=== PATIENT | female | born 1985 | race Caucasian/White ===

== ENCOUNTER 2020-10-23 14:56 | Emergency (ER) | payer OTHER, SELFPAY ==
[2020-10-23 15:08] VITALS: BP 138/91; PULSE 117; RESP 20; TEMP 36.8; O2SAT 98
--- NOTE | 2020-10-23 15:15 | ED.SKABFB ---
HPI - Skin/Abscess/Foreign Bdy General Chief complaint: Skin/Abscess/Foreign Body Stated complaint: cyst on back Source: patient Mode of arrival: ambulatory Limitations: no limitations History of Present Illness HPI narrative: Patient is a 35-year-old female who presents reporting abscess to right upper back. Patient reports a history of abscesses as well as sebaceous cysts. Patient reports abscess x6 to 7 days with increased redness and tenderness x3 days. She denies other complaints at this time. She reports using warm compresses and taking Tylenol without relief. She reports she is in town for the [place] and unable to see PCP. Related Data Home Medications Medication Instructions Recorded Confirmed chlorpromazine 10/23/20 clonazepam 10/23/20 flurandrenolide TOPICAL 10/23/20 Allergies Allergy/AdvReac Type Severity Reaction Status Date / Time codeine Allergy Mild Unverified 10/20/16 12:05 RED #40 Allergy Mild Uncoded 11/11/08 16:36 Review of Systems Review of Systems: Narrative: CONSTITUTIONAL: Denies fever, chills, or sweats. EYES: Denies visual changes, redness, or discharge. ENT: Denies rhinorrhea, congestion, sore throat, or otalgia. CARDIOVASCULAR: Denies chest pain, palpitations, or edema. RESPIRATORY: Denies cough or dyspnea. GASTROINTESTINAL: Denies abdominal pain, nausea, vomiting, or diarrhea. GENITOURINARY: Denies dysuria or hematuria. SKIN: Abscess to right upper back MUSCULOSKELETAL: Denies back pain, joint pain, or myalgia. NEUROLOGIC: Denies headache, numbness, dizziness, or weakness. PSYCHIATRIC: Denies anxiety or depression. [facility] Past Medical History Medical History Anxiety Depression Endometriosis Pilonidal cyst Surgical History Surgical History History of appendectomy History of bowel resection History of hysterectomy Hx of cholecystectomy Family History Family History Other No significant family history Social History Social History Smoking status: Never smoker Alcohol intake: current Alcohol use details: socially Substance use: never Living arrangements: with family Exam Narrative: Exam Narrative: GENERAL: Well-appearing, well-nourished, and in no acute distress. HEAD: Normocephalic, atraumatic. EYES: EOMI. No redness or drainage. Conjunctiva are normal. ENT: Mucous membranes pink and moist. CHEST: No respiratory distress. HEART: Regular rate and rhythm. EXTREMITIES: Normal range of motion. SKIN: Approximately 1.5 cm area of erythema to right upper back, induration and centralized fluctuance. NEURO: No focal deficits. Alert and oriented x3. Gait steady. PSYCH: Normal affect. No signs of depression or anxiety. Course Vital Signs Vital signs: Vital Signs Temperature 36.8 C 10/23/20 15:08 Pulse Rate 117 H 10/23/20 15:08 Respiratory Rate 10/23/20 15:08 Blood Pressure 138/91 H 10/23/20 15:08 Pulse Oximetry 98 10/23/20 15:08 Temperature 36.8 C 10/23/20 15:08 Pulse Rate 117 H 10/23/20 15:08 Respiratory Rate 10/23/20 15:08 Blood Pressure 138/91 H 10/23/20 15:08 Pulse Oximetry 98 10/23/20 15:08 Reviewed. Patient has been instructed to follow-up with her PCP regarding her blood pressure. Procedures Abscess I/D back: Date of Incision: 10/23/20 Time of Incision: 15:30 Side (if applicable): right Sedation/analgesia: none Local Anesthetic: lidocaine 1% Amount of anesthesia used (mL): 2 Technique: incised with #11 blade Packing used?: none I&D Results: Pus and Blood MDM - Skin/Abscess/Foreign Bdy MDM Narrative Medical decision making narrative: Incision and drainage completed to patient's right back, moderate amount of pus note
== END 2020-10-23 15:52 | disposition home or self-care (01) ==
PROVIDERS: Emergency Provider Nurse Practitioner
DX: L02.212 Cutaneous abscess of back [any part, except buttock and flank] (principal); L03.312 Cellulitis of back [any part except buttock and flank]
CPT/HCPCS: 10060; 87070; 87075; 87205; 87804; 87880; 99213; G0463

== ENCOUNTER 2020-10-27 11:04 | Emergency (ER) | payer OTHER, SELFPAY ==
[2020-10-27 11:10] VITALS: BP 129/75; PULSE 99; RESP 16; TEMP 36.2; O2SAT 98
--- NOTE | 2020-10-27 11:16 | ED.SKABFB ---
HPI - Skin/Abscess/Foreign Bdy General Chief complaint: Skin/Abscess/Foreign Body Stated complaint: possible cyst on back Source: patient Mode of arrival: ambulatory Limitations: no limitations History of Present Illness HPI narrative: Patient is a 35-year-old female who resents with abscess to right back. Abscess was drained 4 days ago and she reports it is filling up . She reports using drainage and tenderness. Patient was also started on clindamycin at that time. She denies all other complaints. MD complaint: abscess/boil Related Data Home Medications Medication Instructions Recorded Confirmed chlorpromazine 10/23/20 clonazepam 10/23/20 flurandrenolide TOPICAL 10/23/20 Allergies Allergy/AdvReac Type Severity Reaction Status Date / Time codeine Allergy Mild Unverified 10/20/16 12:05 RED #40 Allergy Mild Uncoded 11/11/08 16:36 Review of Systems Review of Systems: Narrative: CONSTITUTIONAL: Denies fever, chills, or sweats. EYES: Denies visual changes, redness, or discharge. ENT: Denies rhinorrhea, congestion, sore throat, or otalgia. CARDIOVASCULAR: Denies chest pain, palpitations, or edema. RESPIRATORY: Denies cough or dyspnea. GASTROINTESTINAL: Denies abdominal pain, nausea, vomiting, or diarrhea. GENITOURINARY: Denies dysuria or hematuria. SKIN: Abscess to right back MUSCULOSKELETAL: Denies back pain, joint pain, or myalgia. NEUROLOGIC: Denies headache, numbness, dizziness, or weakness. PSYCHIATRIC: Denies anxiety or depression. PMFSH Past Medical History Medical History Anxiety Depression Endometriosis Pilonidal cyst Surgical History Surgical History History of appendectomy History of bowel resection History of hysterectomy Hx of cholecystectomy Family History Family History Other No significant family history Social History Social History Smoking status: Never smoker Alcohol intake: current Substance use: never Exam Narrative: Exam Narrative: GENERAL: Well-appearing, well-nourished, and in no acute distress. HEAD: Normocephalic, atraumatic. EYES: EOMI. No redness or drainage. Conjunctiva are normal. ENT: Mucous membranes pink and moist. CHEST: No respiratory distress. EXTREMITIES: Normal range of motion. SKIN: Small abscess to right back, original incision closed at this time, tenderness with palpation, no induration, fluctuation or erythema present as it was 4 days prior. NEURO: No focal deficits. Alert and oriented x3. Gait steady. PSYCH: Normal affect. No signs of depression or anxiety. Course Vital Signs Vital signs: Vital Signs Temperature 36.2 C L 10/27/20 11:10 Pulse Rate 99 10/27/20 11:10 Respiratory Rate 16 10/27/20 11:10 Blood Pressure 129/75 10/27/20 11:10 Pulse Oximetry 98 10/27/20 11:10 Temperature 36.2 C L 10/27/20 11:10 Pulse Rate 99 10/27/20 11:10 Respiratory Rate 16 10/27/20 11:10 Blood Pressure 129/75 10/27/20 11:10 Pulse Oximetry 98 10/27/20 11:10 Reviewed. Patient has been instructed to follow-up with her PCP regarding her blood pressure. Procedures Abscess I/D back: Date of Incision: 10/27/20 Time of Incision: 11:20 Side (if applicable): right Sedation/analgesia: none Local Anesthetic: lidocaine 1% Amount of anesthesia used (mL): 2 Technique: incised with #11 blade Amount of fluid expressed (mL): 1 Irrigation: Yes Packing used?: plain I&D Results: Pus and Blood MDM - Skin/Abscess/Foreign Bdy MDM Narrative Medical decision making narrative: Patient's abscess is healing well. Patient requesting abscess being reopened as she has noted drainage and continues to report pain. Small amount of erythema noted. Discus
== END 2020-10-27 11:39 | disposition home or self-care (01) ==
PROVIDERS: Emergency Provider Nurse Practitioner
DX: L02.212 Cutaneous abscess of back [any part, except buttock and flank] (principal); N80.9 Endometriosis, unspecified; F41.9 Anxiety disorder, unspecified
CPT/HCPCS: 10061; 99212; G0463

== ENCOUNTER 2021-10-12 13:23 | Emergency (ER) | payer OTHER, SELFPAY ==
[2021-10-12] VITALS (18 sets, daily range): BP systolic 100–118; BP diastolic 53–87; PULSE 59–80; RESP 10–20; TEMP 36.8–36.9; O2SAT 92–100
--- NOTE | ~2021-10-12 | CT_ITS ---
EXAMINATION: CT abdomen pelvis w con DATE: 10/12/2021 15:22 INDICATION: Periumbilical abdominal pain TECHNIQUE: Computed tomography (CT) of the abdomen and pelvis was performed with 100 cc Omnipaque 350 intravenous contrast. The dose-length product was 864.17 mGy-cm. Automated exposure control and iter ative reconstruction technique were employed. COMPARISON: None. FINDINGS: Lung bases are unremarkable. Heart size is normal. No significant pleural or pericardial ef fusion. Status post cholecystectomy with expected prominence of the bile ducts. The spleen, pancreas, adrenal glands are unremarkable. There is a 3 mm nonobstructing left renal stone. There are subtle h ypodense lesions of the kidneys, most likely benign cysts. Nonobstructive bowel gas pattern. There are is a surgical anastomosis in the right lower abdomen and rectum. No significant vascular abnormality. No lymphadenopathy. No acute osseous abnormality. IMPRESSION: 1. No acute abdominal abnormality. 2: Nonobstructing 3 mm left renal stone. Reviewed, dictated and finalized at location A. TRANSITIONAL
--- NOTE | ~2021-10-12 | XR_ITS ---
EXAMINATION: XR chest 2V DATE: 10/12/2021 14:15 INDICATION: Low-grade fever. Abdominal pain. TECHNIQUE: Frontal and lateral views of the chest were obtained. COMPARISON: None. FINDINGS: The chest demonstrates clear lungs without pneumonia, pleural effusion, or pneumothorax. Th e heart size is normal. Surgical clips in the right upper quadrant are likely from cholecystectomy. IMPRESSION: 1. No acute cardiopulmonary disease. Reviewed, dictated and finalized at location A. ITY COMPLIANCE COORDINATOR
[2021-10-12] MEDS: SODIUM CHLORIDE 0.9% IV 1,000 ML 999 ML IV CONT (14:09)
[2021-10-12] MEDS: ONDANSETRON INJ 4 MG/2 ML VIAL IV PUSH (14:10)
--- NOTE | 2021-10-12 14:12 | PC.NURSE ---
Pt off floor to radiology
--- NOTE | 2021-10-12 14:31 | ED.GENADULT ---
HPI - General Adult General Chief complaint: Abdominal Pain Stated complaint: ABD PAIN/FEVER Time Seen by Provider: 10/12/21 13:38 Source: patient and RN notes reviewed Mode of arrival: EMS Limitations: no limitations History of Present Illness HPI narrative: This is a 36 year old female with history of endometriosis, SBO, chronic abdominal pain who presents for evaluation of low grade fever. She reports history of abdominal and this abdominal today is similar to her usual pain. She is here due to concern for low grade fever. Her fever started last night. She reports temperature of 99-100 F last night and she had fever 100.4 F at home today. Her abdominal pain is located just right of her umbilicus. She had small bowel movement this morning but states she has not had BM in 3 days. She has nausea but no vomiting. She denies sore throat, cough, shortness of breath or urinary symptoms. Related Data Home Medications Medication Instructions Recorded Confirmed chlorpromazine 10/23/20 clonazepam 10/23/20 flurandrenolide TOPICAL 10/23/20 Allergies Allergy/AdvReac Type Severity Reaction Status Date / Time codeine Allergy Mild Unknown Verified 10/12/21 13:36 RED #40 Allergy Mild Hyperactive Uncoded 10/12/21 13:36 Review of Systems Review of Systems: All systems reviewed & are unremarkable except as noted in HPI and below PMFSH Past Medical History Medical History Anxiety Depression Endometriosis Pilonidal cyst Surgical History Surgical History History of appendectomy History of bowel resection History of hysterectomy Hx of cholecystectomy Family History Family History Other No significant family history Social History Social History Smoking status: Never smoker Alcohol intake: current Alcohol use details: socially Substance use: never Exam Const: General: no acute distress and alert Orientation/consciousness: patient oriented x3 Eyes: EOM: EOMs intact bilaterally Chest: Chest palpation & inspection: normal inspection of the chest Resp: Effort & Inspection: normal respiratory effort and no retractions Auscultation: clear to auscultation bilaterally Cardio: Rate: regular rate Rhythm: regular rhythm Heart sounds: no murmurs GI: GI Palp: Yes Soft to palpation, Yes Tenderness to palpation present (GI) (Diffuse), No Guarding due to palpation present (GI) and No Rigid due to palpation Auscultation: normal bowel sounds : General: Yes no CVA tenderness Skin: General skin exam: normal color Rashes: no rashes Neuro: General: patient oriented x3, moves all extremities and CN's II-XI intact bilaterally Psych: Mental Status: mental status grossly normal Affect: normal affect Course Reevaluation(s) Reevaluation #1: I Discussed with patient labs and CT unremarkable. She understands she will be discharged home and she is still under investigation for covid. She does not appear to be in any distress. Date: 10/12/21 Time: 16:31 Vital Signs Vital signs: Vital Signs Temperature 98.5 F 10/12/21 13:27 Pulse Rate 79 10/12/21 13:27 Respiratory Rate 12 10/12/21 13:27 Blood Pressure 108/87 10/12/21 13:27 Pulse Oximetry 96 10/12/21 13:27 Temperature 98.2 F 10/12/21 17:13 Pulse Rate 59 L 10/12/21 17:13 Respiratory Rate 18 10/12/21 17:13 Blood Pressure 116/82 10/12/21 17:13 Pulse Oximetry 100 10/12/21 17:13 Medical Decision Making Vital Signs Vital Signs: Vital Signs Temperature 98.5 F 10/12/21 13:27 Pulse Rate 79 10/12/21 13:27 Respiratory Rate 12 10/12/21 13:27 Blood Pressure 108/87 10/12/21 13:27 Pulse Oximetry 96 10/12/21 13:27 Temperature 98.2 F 10/12/21 17:13 Pulse Rate 59 L 10/12/21
[2021-10-12 14:41] LABS: Basophils Percent Auto 0.2 % (0.2-1.2); Eosinophils Percent Auto 0.1 % (0-4.4); Hematocrit 38.9 % (37.0-47.0); Hemoglobin 13.3 g/dL (12.0-15.0); Immature Granulocyte Absolute 0.11 K/mm3 (0.00-0.031); Immature Granulocyte Percent A 1.3 % (0-0.5); Lymphocytes Absolute Auto 1.84 K/mm3 (0.9-3.2); Lymphocytes Percent Auto 22.2 % (18.3-44.2); Mean Corpuscular HGB Conc 34.2 g/dl (32-36); Mean Corpuscular Volume 87.8 fl (80-100); Mean Platelet Volume 9.8 fl (7.4-10.4); Monocytes Absolute Auto 0.3 K/mm3 (0.1-0.6); Monocytes Percent Auto 3.1 % (2.6-8.5); Neutrophils Absolute Auto 6.1 K/mm3 (1.3-6.7); Neutrophils Percent Auto 73.1 % (45.5-73.1); Platelet Count Result 189 k/mm3 (150-375); Red Blood Count 4.43 M/mm3 (4.2-5.4); Red Cell Distribution Width 12.8 % (11.5-14.5); White Blood Count 8.3 K/mm3 (4.5-10.0)
[2021-10-12 14:50] LABS: Add Urine Microscopic? YES; Amorphous Sediment Urine Moderate; Appearance Urine Cloudy (Clear); Bilirubin Urine Negative (Negative); Blood Urine Negative (Negative); Color Urine Yellow (Yellow); Glucose Urine UA Negative (Negative); Ketones Urine Negative (Negative); Leukocyte Esterase Ur Negative LEU/UL (Negative); Mucus Urine Rare /lpf; Nitrate Urine Negative (Negative); Protein Urine Negative (Negative); RBC Urine 0-2 /hpf (0-2); Specific Grav Ur 1.013 (1.001-1.035); Squamous Epithelial Cell Urine Occasional /hpf (Few); Urobilinogen Urine Negative mg/dL (<2.0); WBC Urine 0-3 /hpf
[2021-10-12 14:53] LABS: Alanine Aminotransferase 23 U/L (4-35); Albumin Level 4.3 g/dL (3.5-5.1); Alkaline Phosphatase 56 U/L (38-126); Anion Gap 3 mmol/L (8-16); Aspartate Amino Transferase 21 U/L (14-36); Bilirubin,Total 0.3 mg/dL (0.2-1.3); Blood Urea Nitrogen 19 mg/dL (7-17); Calcium 9.3 mg/dL (8.4-10.2); Carbon Dioxide 24 mmol/L (22-30); Chloride 109 mmol/L (98-107); Estimated CRCL calculation 101 ml/min; Estimated Glomerular Filt Rate > 60; Glucose 118 mg/dL (65-110); Lipase 35 U/L (23-300); Potassium 4.6 mmol/L (3.4-5.0); Sodium 136 mmol/L (137-145)
[2021-10-12 14:54] LABS: Lactic Acid Reflex 0.8 mmol/L (0.7-2.1)
[2021-10-12] MEDS: KETOROLAC 30 MG/ML VIAL (*BKC) IV PUSH (15:33)
[2021-10-12] MEDS: DICYCLOMINE HCL INJ 20 MG/2 ML VIAL IM (16:28)
[2021-10-16 19:23] LABS: SARS-CoV-2 RNA PCR Negative
== END 2021-10-12 17:30 | disposition home or self-care (01) ==
PROVIDERS: Emergency Provider General Practice
DX: N20.0 Calculus of kidney (principal); Z20.822 Contact with and (suspected) exposure to COVID-19
CPT/HCPCS: 36415; 71046; 74177; 80053; 81001; 83605; 83690; 85025; 87804; 96361; 96372; 96374; 96375; 99284; C9803; J0131; J0500; J1885; J2405; J7030; Q9967; U0003; U0005

== ENCOUNTER 2022-01-13 15:30 | Emergency (ER) | payer OTHER, SELFPAY ==
--- NOTE | 2022-01-13 15:37 | ED.SKABFB ---
HPI - Skin/Abscess/Foreign Bdy General Chief complaint: Skin/Abscess/Foreign Body Stated complaint: Swollen cyst Time Seen by Provider: 01/13/22 15:37 Source: patient Mode of arrival: ambulatory Limitations: no limitations History of Present Illness HPI narrative: Ms. Bowie is a 36-year-old female patient presenting to the clinic today with complaints of possible infected cyst to the posterior right thigh. She does have a history of pilonidal cyst in the past that was surgically removed. Is concerned that this cyst may become more infected and become more painful. She is adamant about having this removed today due to her insurance lapsing due to new employment. Reports that it has become more painful today but it has been present for approximately 1 year. Related Data Home Medications Medication Instructions Recorded Confirmed clonazepam 10/23/20 Cymbalta 01/13/22 Allergies Allergy/AdvReac Type Severity Reaction Status Date / Time codeine Allergy Mild Unknown Verified 10/12/21 13:36 RED #40 Allergy Mild Hyperactive Uncoded 10/12/21 13:36 Review of Systems Review of Systems: Pertinent positives per HPI. Patient denies any fever, chills, rash, headache, visual changes, dizziness, cough, runny nose, sore throat, shortness of breath, chest pain, palpitations, nausea, vomiting, diarrhea, constipation, abdominal pain, or any urinary issues. PMFSH Past Medical History Medical History Anxiety Depression Endometriosis Pilonidal cyst Surgical History Surgical History History of appendectomy History of bowel resection History of hysterectomy Hx of cholecystectomy Family History Family History Other No significant family history Social History Social History Smoking status: Never smoker Alcohol intake: current Alcohol use details: socially Substance use: never Comments At the time of my signature, I reviewed and agree with the nursing past medical, surgical, social, and family history. There is no relevant family history pertinent to the patient complaint. Exam Narrative: General: Well-developed, well nourished, in no apparent distress Cardio: Regular rate and rhythm, s1 and s2 normal, no murmur appreciated. Resp: Clear to auscultation bilaterally, no rhonchi, rales, wheezing or rubs. Integumentary: [place], warm, and dry, intact without lesion, no rashes. Quarter sized cyst to the right posterior thigh just under subcutaneous tissue, no redness or swelling, tender to palpation with mild fluctuance. Has a very small blackhead in the center of the cyst. Course Course Emergency Course: Portions of this record may have been created with voice recognition software. Level of Care: Express Care Visit Vital Signs Vital signs: Vital signs reviewed Procedures Abscess I/D lower extremity: Date of Incision: 01/13/22 Time of Incision: 15:46 Side (if applicable): right Local Anesthetic: lidocaine 1% and with epi Amount of anesthesia used (mL): 2 Technique: incised with #11 blade Irrigation: No Packing used?: none Abcess I&D Additional Comments: Verbal consent obtained for excision and removal sebaceous cyst. Risk and benefits explained and patient voiced understanding. Area was cleansed with [employer]. Area was prepped and draped using sterile technique. 25 gauge needle was then used to instill (2) ml of lidocaine with epi into the wound edges. Patient tolerated well and anesthesia was appropriate. An 11 blade scalpel was then used to make a 0.5cm incision over the cyst. [place] cheeselike exudate expressed from cavity. 1 interrupted suture 4-0 on a P3 needle was used for wound closure. Patient
[2022-01-13 15:39] VITALS: BP 131/81; PULSE 91; RESP 16; TEMP 36.1; O2SAT 97
[2022-01-13 15:42] VITALS: BP 131/81; PULSE 91; RESP 16; TEMP 36.1; O2SAT 97
== END 2022-01-13 16:13 | disposition home or self-care (01) ==
PROVIDERS: Emergency Provider Nurse Practitioner Family
DX: L72.3 Sebaceous cyst (principal); N80.9 Endometriosis, unspecified
CPT/HCPCS: 10060; 99212; G0463

== ENCOUNTER 2024-07-14 14:28 | Emergency (ER) | payer BC, SELFPAY ==
--- NOTE | ~2024-07-14 | XR_ITS ---
EXAM: XR lumbar spine min 4V DATE: 07/14/2024 16:25 HISTORY: fell this morning . COMPARISON: CT abdomen pelvis 10/12/2021. FINDINGS: 5 nonrib-bearing lumbar-type vertebral bodies. Pedicles intact. Mild scoliosis. Normal serafin tebral body alignment. Vertebral body heights preserved. Cholecystectomy clips. Rectosigmoid anastomo sis. Mild degenerative disc disease at all lumbar levels. Mild mid and lower lumbar facet arthropathy . Mild bilateral hip osteoarthritis. No fracture or dislocation. IMPRESSION: No acute fracture or traumatic malalignment detected in the lumbar spine. Reviewed, dictated and finalized at location K.
[2024-07-14 15:18] VITALS: BP 127/88; PULSE 125; RESP 18; TEMP 37.4; O2SAT 97
--- NOTE | 2024-07-14 16:23 | ED.BACK ---
HPI - Back Pain/Injury General Chief Complaint: Back Pain/Injury Stated Complaint: Back Pain Time Seen by Provider: 07/14/24 16:10 Source: patient, RN notes reviewed and old records reviewed Mode of arrival: ambulatory Limitations: no limitations History of Present Illness HPI Narrative: 39 year old female presents to [facility] care with complaints of tripping over her dog and fell onto her back with pain to lower back area now. Patien reports pain intense across lower back with tightness to right side of lower back. Patient has been taking Tylenol and using ice to her back as comfort measure. Patient denies any radiation of pain to legs, states no tingling or numbness to legs, no saddle paraesthesia or difficulty with bowel or bladder function. MD elicited complaint: back pain Onset (ago): day(s) (1) Pain scale (0-10): 8 Treatments prior to arrival: cold therapy and acetaminophen Related Data Home Medications Medication Instructions Recorded Confirmed aripiprazole 10 mg tablet 10 mg PO DAILY 07/14/24 07/14/24 sertraline 100 mg tablet 150 mg PO DAILY 07/14/24 07/14/24 trazodone 50 mg tablet 50 mg PO HS 07/14/24 07/14/24 Allergies Allergy/AdvReac Type Severity Reaction Status Date / Time codeine Allergy Mild Unknown Verified 07/14/24 15:11 RED #40 Allergy Mild Hyperactive Uncoded 07/14/24 15:11 Review of Systems Review of Systems: CONSTITUTIONAL: Denies fever, chills, or sweats. EYES: Denies visual changes, redness, or discharge. ENT: Denies rhinorrhea, congestion, sore throat, or otalgia. CARDIOVASCULAR: Denies chest pain, palpitations, or edema. RESPIRATORY: Denies cough or dyspnea. GASTROINTESTINAL: Denies abdominal pain, nausea, vomiting, or diarrhea. GENITOURINARY: Denies dysuria or hematuria. SKIN: Denies rash or itching. MUSCULOSKELETAL: reports lumbar back pain, joint pain, or myalgia. NEUROLOGIC: Denies headache, numbness, or weakness. PSYCHIATRIC: Reports history of anxiety or depression. All systems reviewed & are unremarkable except as noted in HPI and below PMFSH Past Medical History Medical History Anxiety Depression Endometriosis Pilonidal cyst Surgical History Surgical History History of appendectomy History of bowel resection History of hysterectomy Hx of cholecystectomy Family History Family History Other No significant family history Social History Social History Smoking status: Never smoker Alcohol intake: current Alcohol use details: socially Substance use: never Living arrangements: with family Comments At time of signature, agree with nursing past medical, surgical, social and family history. There is no relevant family history pertinent to the presenting complaint Exam Narrative: GENERAL: Well-appearing, well-nourished, and in no acute distress. HEAD: Normocephalic, atraumatic. EYES: PERRLA and EOMI. ENT: Nares clear, no rhinorrhea or epistaxis. Mucous membranes moist. NECK: Supple.no lymphadenopathy CHEST: Clear to auscultation. No respiratory distress.SAO2 97% on room air HEART: Regular rate and rhythm. No murmur heard. Normal peripheral pulses. ABDOMEN: Soft, nontender, nondistended, normal active bowel sounds. EXTREMITIES: Normal range of motion. No edema.Pain across lumbar back with no radiation to legs, no tingling or numbness verbalized, muscle tightness noted right lower back no difficulty with bladder or bowel function, no saddle paraesthesia.Patient reports increased pain with ambulation and changing positions. SKIN: Warm, dry, no rash. NEURO: No focal deficits. Alert and oriented x3. Course Course Emergency Course: Patient is aware of diagnosis, understands and agrees to treatment plan.? Anticipatory guidance given.? Patient ag
== END 2024-07-14 17:14 | disposition home or self-care (01) ==
PROVIDERS: Emergency Provider Registered Nurse
DX: S39.012A Strain of muscle, fascia and tendon of lower back, initial encounter (principal); W01.0XXA Fall on same level from slipping, tripping and stumbling without subsequent striking against object, initial encounter; F41.9 Anxiety disorder, unspecified; F32.A Depression, unspecified; N80.9 Endometriosis, unspecified
CPT/HCPCS: 72110; 99213; G0463

== ENCOUNTER 2025-09-03 08:53 | Emergency (ER) | payer BC, SELFPAY ==
--- OUTSIDE RECORDS SUMMARY | 2024-08-12 06:30 | XMS_ITS ---
Author Organization [facility] [place] ([address]) Address [address] [facility] [address] [place] [address] Care Team Providers Care Immigration Coordinator Name Role Phone Basil Guerrero Unavailable [phone] Results Component Value Reference Range Notes HRT Female Pre Pellet Reviewed date:12/07/2024 12:19:10 PM Interpretation:Abnormal Performing Lab:[facility] [address] [id number], Phone - [phone], Director - Endy Notes/Report: Clinical Information:NAME CORRECTED 08/25/24 Glucose 91 70-99 mg/dL BUN 12 6-24 mg/dL Creatinine 0.80 0.57-1.00 mg/dL eGFR 95 >59 mL/min/1.73 BUN/Creatinine Ratio 15 9-23 Sodium 139 134-144 mmol/L Potassium 4.2 3.5-5.2 mmol/L Chloride 103 96-106 mmol/L Carbon Dioxide, Total 21 20-29 mmol/L Calcium 9.7 8.7-10.2 mg/dL Protein, Total 7.1 6.0-8.5 g/dL Albumin 4.7 3.9-4.9 g/dL Globulin, Total 2.4 1.5-4.5 g/dL Bilirubin, Total 0.2 0.0-1.2 mg/dL Alkaline Phosphatase 78 44-121 IU/L AST (SGOT) 25 0-40 IU/L ALT (SGPT) 33 0-32 IU/L Vitamin B12 942 044-0329 pg/mL Vitamin D, 25-Hydroxy 19.9 30.0-100.0 ng/mL Vitamin D deficiency has been defined by the [place] of Medicine and an Endocrine Society practice guideline as a level of serum 25-OH vitamin D less than 20 ng/mL (1,2). The Endocrine Society went on to further define vitamin D insufficiency as a level between 21 and 29 ng/mL (2). 1. IOM ([place] of Medicine). 2010. Dietary reference intakes for calcium and D. [place]: The National AcademWhispering [employer] Press. 2. Gabriele MF, Mary MANZANARES, Brody CHI, et al. Evaluation, treatment, and prevention of vitamin D deficiency: an Endocrine Society clinical practice guideline. JCEM. 2010; 96(4):1911-30. TSH 1.490 0.450-4.500 uIU/mL Triiodothyronine (T3), Free 3.1 2.0-4.4 pg/mL T4,Free(Direct) 1.28 0.82-1.77 ng/dL Thyroid Peroxidase (TPO) Ab 10 0-34 IU/mL Testosterone 39 8-60 ng/dL FSH 68.2 Adult Female Range Follicular phase 3.5 - 12.5 Ovulation phase 4.7 - 21.5 Luteal phase 1.7 - 7.7 Postmenopausal 25.8 - 134.8 Estradiol 7.6 Adult Female Range Follicular phase 12.5 - 166.0 Ovulation phase 85.8 - 498.0 Luteal phase 43.8 - 211.0 Postmenopausal <6.0 - 54.7 1st trimester 215.0 - >4300.0 James ECLIA methodology WBC 8.4 3.4-10.8 x10E3/uL RBC 4.96 3.77-5.28 x10E6/uL Hemoglobin 14.4 11.1-15.9 g/dL Hematocrit 43.4 34.0-46.6 % MCV 88 79-97 fL MCH 29.0 26.6-33.0 pg MCHC 33.2 31.5-35.7 g/dL RDW 12.9 11.7-15.4 % Platelets 274 150-450 x10E3/uL Neutrophils 53 Not Estab. % Lymphs 41 Not Estab. % Monocytes 5 Not Estab. % Eos 1 Not Estab. % Basos 0 Not Estab. % Neutrophils (Absolute) 4.4 1.4-7.0 x10E3/uL Lymphs (Absolute) 3.4 0.7-3.1 x10E3/uL Monocytes(Absolute) 0.4 0.1-0.9 x10E3/uL Eos (Absolute) 0.0 0.0-0.4 x10E3/uL Baso (Absolute) 0.0 0.0-0.2 x10E3/uL Immature Granulocytes 0 Not Estab. % Immature Grans (Abs) 0.0 0.0-0.1 x10E3/uL REASON FOR VISIT [facility], interested in peptide therapy and HRT, no hx of GLP-1 meds., Desired weight loss: 70lbs, No history MTC or MEN2 or pancreatitis, Concerned about future DM and OA Medications Medication SIG (Take, Route, Fr equency, Duration) Notes Start Date End Date Status Abilify 10 MG 1 tablet Orally Once a day Active lamoTRIgine 25 MG 1 tablet Orally Active Zoloft 100 MG 1 tablet Orally Once a day Active traZODone HCl 100 MG 1 tablet at bedtime Orally Once a day Active clonazePAM 1 MG 1 tablet Orally Once a day Active Problems Problem Type SNOMED Code ICD Code Onset Dates Problem Status W/U Status Risk Notes Problem Chronic fatigue syndrome (disorder) (10771345) Chronic fatigue, unspecified (R53.82) Active confirmed Vital Signs Temperature 98.7 degrees Fahrenheit 08/12/20 24 Blood pressure systolic 137 mm Hg 08/12/20 24 Blood pressure diastolic 92 mm Hg 024 Respiratory Rate 18 /min 08/12/2024 Height 69 in 08/12/2024 Weight 245.4 lbs 08/12/2024 BMI 36.24 kg/m2 08/12/2024 Oximetry 96 % 08/12/2024 Encounters Encounter Location Date Provider Diagnosis [facility] [place] ([address]) [address] [place] [phone] 08/12/2024 Basil Guerrero Chronic fatigue, unspecified R53.82 ; Abnormal weight gain R63.5 ; Other fatigue R53.83 and Other malaise R53.81 Assessments Encounter Date Diagnosis (ICD Code) Assessment Notes Treatment Notes Treatment Clinical Notes Section Notes 08/12/2024 Chronic fatigue, unspecified (ICD-10 - R53.82) 08/12/2024 Abnormal weight gain (ICD-10 - R63.5) 08/12/2024 Other fatigue (ICD-10 - R53.83) 08/12/2024 Other malaise (ICD-10 - R53.81) Plan Of Treatment Next Appt Details Follow Up: 1 Week, Reason: G LP-1 Agonist Administration Procedure Notes * Category Sub-Category Detail Notes [facility]: Weight Management tirzepatide Indication: weig ht loss Concentration: 10 mg/mL Volume Administered: 0.1 mL Dose Administered: 1 mg Route: SQ Location: TED Frequency: weekly Lot Number/Expiration: Medication Source: SimpleLegal Adverse Reaction: None Progress Notes * Anil NORIEGAOB:[birth year] (40 yo F)Acc No.[id number]:08/12/2024 MARBLE SUPERVISOR Weight Loss Patient: Analia VALENCIA Provider: Umm Guerrero MD :1985 A ge:39 Y S ex:Female Date:08/12/2024 Address:[address] [place], [place] [address] Subjective: * Chief Complaints: * 1 . [facility], interested in peptide therapy and HRT, no hx of GLP-1 meds.. 2. Desired weight loss: 70lbs. 3. No history MTC or MEN2 or pancreatitis. 4. Concerned about future DM and OA. * HPI: * Aesthetics & Wellness: The risks, benefits & alternatives were discussed regarding available treatment options. A treatment path was determined after reviewing the patients medical records, our verbal discussions and via joint decision-making Consents for our planned treatments were signed and are on file. She denies any history of DM2 or prior GLP-1 medications. She has a history of sigmoid bowel resection in 2014. * Medical History: S mall bowel obstruction, S/p ileostomy reversal, S/p hysterectomy, Endometriosis (stage 4). * Surgical History: h ysterectomy , cholecystectomy , appendectomy , sigmoid bowel resection , ileostomy reversal . * Medications: T aking traZODone HCl 100 MG Tablet 1 tablet at bedtime Orally Once a day , Taking clonazePAM 1 MG Tablet 1 tablet Orally Once a day , Taking lamoTRIgine 25 MG Tablet 1 tablet Orally , Taking Abilify 10 MG Tablet 1 tablet Orally Once a day , Taking Zoloft 100 MG Tablet 1 tablet Orally Once a day Objective: * Vitals: T emp:98.7F, BP:137/92mm Hg, HR:113/min, RR:18/min, Pulse Oximetry:96%, Ht: 69 in, Wt: 245.4 lbs, BMI:36.24Index, Neck circ: 16.5 in, Waist circ: 47 in, Hip Circ: 49 in. * Dermatology Examination: Assessment: * Assessment: 1. A bnormal weight gain - R63.5 (Primary) 2 . C hronic fatigue, unspecified - R53.82 3 . O ther fatigue - R53.83 4 . O ther malaise - R53.81 Plan: * Treatment: 2. C hronic fatigue, unspecified L AB: HRT Female Pre Pellet (Collection Date & Time - 08/12/2024 02:53 PM) * Procedures: Q uell: Weight Management: tirzepatide I ndication w eight loss C oncentration 1 0 mg/mL V olume Administered 0 .1 mL D ose Administered 1 mg R oute S Q L ocation R UA F requency w eekly L ot Number/Expiration 0 -2023 M edication Source H [facility] A dverse Reaction N one * Follow Up: 1 Week (Reason: GLP-1 Agonist Administration) * Billing Information: * Visit Code: * Procedure Codes: 73015 Kristie Initial Consultation (tirzepatide). 01741 [facility] - BHRT Pre-Pellet Lab Female. Images * Dermatology Examination/emili sherita_08/12/2024 12:59:12 Dermatology Examination/francisco magallon_08/12/2024 12:59:25 * Electronic signature of Romi Guerrero MD, FAAAAI on 09/03/2025 at 09:22 AM CHECKMAN Sign off status: Pending * Provider: Umm Guerrero MD Date: Generated for Franki ariza/Pat/Dwight on: 11/03/2024 09:22 AM CHECKMAN History and Physical Notes * HPI (History of Present Illness) Category Sub-Category Detail Notes Category Not es *Aesthetics & Wellness The r isks, benefits & alternatives were discussed regarding available treatment options. A treatment path was determined after reviewing the patients medical records, our verbal discussions and via joint decision-making Consents for our planned treatments were signed and are on file. She denies any history of DM2 or prior GLP-1 medications. She has a history of sigmoid bowel resection in 2014.
--- OUTSIDE RECORDS SUMMARY | 2024-08-19 11:00 | XMS_ITS ---
Author Organization [employer] [facility] [place] ([address]) Address [address] [place] [address] Care Team Providers Care Pallet Repairer Name Role Phone Basil Guerrero [phone] REASON FOR VISIT [facility], interested in peptide therapy and HRT, no hx of GLP-1 meds, appetite suppression lasting 3-4 days, constipation noted, encouraged increased fiber and GI cocktail, Desired weight loss: 70lbs -0.2 lbs, -0.2 lbs since starting program, No history MTC or MEN2 or pancreatitis,Concerned about future DM and OA Medications Medication SIG (Take, Route, Fr equency, Duration) Notes Start Date End Date Status Abilify 10 MG 1 tablet Orally Once a day Active Zoloft 100 MG 1 tablet Orally Once a day Active clonazePAM 1 MG 1 tablet Orally Once a day Active lamoTRIgine 25 MG 1 tablet Orally Active traZODone HCl 100 MG 1 tablet at bedtime Orally Once a day Active Vital Signs Height 69 in 08/19/2024 Weight 245.2 lbs 08/19/2024 BMI 36.21 kg/m2 08/19/2024 Encounters Encounter Location Date Provider Diagnosis [facility] [place] ([address]) [address] [place] [address] 08/19/2024 Basil Guerrero Chronic fatigue, unspecified R53.82 ; Abnormal weight gain R63.5 ; Other fatigue R53.83 and Other malaise R53.81 Assessments Encounter Date Diagnosis (ICD Code) Assessment Notes Treatment Notes Treatment Clinical Notes Section Notes 08/19/2024 Chronic fatigue, unspecified (ICD-10 - R53.82) 08/19/2024 Abnormal weight gain (ICD-10 - R63.5) 08/19/2024 Other fatigue (ICD-10 - R53.83) 08/19/2024 Other malaise (ICD-10 - R53.81) Plan Of Treatment Pending Test Test Name Order Date HRT Female Pre Pellet 08/19/2024 Next Appt Details Follow Up: 1 Week, Reason: G LP-1 Agonist Administration Procedure Notes * Category Sub-Category Detail Notes [facility]: Weight Management tirzepatide Indication: weig ht loss Concentration: 10 mg/mL Volume Administered: 0.1 mL Dose Administered: 1 mg Route: SQ Location: Left abdomen Frequency: weekly Lot Number/Expiration: Medication Source: [employer]raceutical [employer] ounding Adverse Reaction: None Progress Notes * Toshia NORIEGAZiOB:[birth year] (40 yo F)Acc No.[id number]:08/19/2024 Weight Loss Patient: Analia VALENCIA Provider: Umm Guerrero MD :1985 A ge:39 Y S ex:Female Date:08/19/2024 Address:[address] [place], [place] [id number] Subjective: * Chief Complaints: * 1 . [facility], interested in peptide therapy and HRT, no hx of GLP-1 meds, appetite suppression lasting 3-4 days, constipation noted, encouraged increased fiber and GI cocktail. 2. Desired weight loss: 70lbs -0.2 lbs, -0.2 lbs since starting program. 3. No history MTC or MEN2 or [...] bowel resection in 2014. * Medical History: * Medications: T aking traZODone HCl 100 [...] Orally Once a day Objective: * Vitals: H t: 69 in, Wt: 245.2 lbs, BMI:36.21Index. Assessment: * Assessment: 1. A bnormal weight gain - R63.5 (Primary) 2 . C hronic fatigue, unspecified - R53.82 3 . O ther fatigue - R53.83 4 . O ther malaise - R53.81 Plan: * Treatment: 2. C hronic fatigue, unspecified L AB: HRT Female Pre Pellet * Procedures: Q uell: Weight Management: tirzepatide I ndication w eight loss C oncentration 1 0 mg/mL V olume Administered 0 .1 mL D ose Administered 1 mg R oute S Q L ocation L eft abdomen F requency w eekly L ot Number/Expiration M edication Source A [facility] [employer] A dverse Reaction N one * Follow Up: 1 Week (Reason: GLP-1 Agonist Administration) * Billing Information: * Visit Code: * Procedure Codes: 82325 Kristie Initial Consultation (tirzepatide). 72904 [facility] - BHRT Pre-Pellet Lab Female. * Electronic signature of Romi Guerrero MD, FAAAAI on 09/03/2025 at 09:22 AM SOFTWARE ASSET MANAGER Sign off status: Pending * Provider: Umm Guerrero MD Date: Generated for Franki ariza/Pat/Dwight on: 11/03/2024 09:22 AM SOFTWARE ASSET MANAGER History and Physical Notes * HPI (History [...]
--- OUTSIDE RECORDS SUMMARY | 2024-08-26 11:30 | XMS_ITS ---
Author Organization [facility] ([address]) Address [address] [place] [phone] Care Team Providers Care Apparel Sales Leader Name Role Phone Basil Guerrero [phone] REASON FOR VISIT BHRT Follow-up Encounters Encounter Location Date Provider Diagnosis [facility] ([address]) [address] [place] [phone] 08/26/2024 Basil Guerrero Plan Of Treatment No Information Progress Notes * LEANN ToshiaZiOB:06[birth year] (40 yo F)Acc No.[id number]:08/26/2024 BHRT Patient: Toshia VALENCIAen Provider: Umm Guerrero MD :1985 A ge:39 Y S ex:Female Date:08/26/2024 Address:[address] [place], [place] [id number] Subjective: * Chief Complaints: * 1 . BHRT Follow-up. * Medical History: Objective: * Vitals: Assessment: Plan: * Treatment: * Billing Information: * Visit Code: * Procedure Codes: * Electronic signature of Romi Guerrero MD, FAAAAI on 09/03/2025 at 09:21 AM TRANSIT OPERATOR Sign off status: Pending * Provider: Umm Guerrero MD Date: Generated for Printi ng/Faxing/eTransmitting on: 11/03/2024 09:21 AM TRANSIT OPERATOR
--- OUTSIDE RECORDS SUMMARY | 2024-08-26 11:30 | XMS_ITS ---
Author Organization [facility] [place] ([address]) Address [address] [place] [address] Care Team Providers Care Battery Assembler Name Role Phone Basil Guerrero [phone] REASON FOR VISIT [facility], interested in peptide therapy and HRT, no hx of GLP-1 meds, appetite suppression lasting 3-4 days, constipation noted, encouraged increased fiber and GI cocktail, Desired weight loss: 70lbs -0.2 lbs, -0.2 lbs since starting program, No history MTC or MEN2 or pancreatitis,Concerned about future DM and OA Encounters Encounter Location Date Provider Diagnosis [facility] [place] ([address]) [address] [place] [phone] 08/26/2024 Basil Guerrero Chronic fatigue, unspecified R53.82 ; Abnormal weight gain R63.5 ; Other fatigue R53.83 and Other malaise R53.81 Assessments Encounter Date Diagnosis (ICD Code) Assessment Notes Treatment Notes Treatment Clinical Notes Section Notes 08/26/2024 Chronic fatigue, unspecified (ICD-10 - R53.82) 08/26/2024 Abnormal weight gain (ICD-10 - R63.5) 08/26/2024 Other fatigue (ICD-10 - R53.83) 08/26/2024 Other malaise (ICD-10 - R53.81) Plan Of Treatment Pending Test Test Name Order Date HRT Female Pre Pellet 08/26/2024 Next Appt Details Follow Up: 1 Week, Reason: G LP-1 Agonist Administration Procedure Notes * Category Sub-Category Detail Notes [facility]: Weight Management tirzepatide Indication: weig ht loss Concentration: 10 mg/mL Volume Administered: 0.1 mL Dose Administered: 1 mg Route: SQ Location: Left abdomen Frequency: weekly Lot Number/Expiration: Medication Source: Nutraceutical Comp ounding Adverse Reaction: None Progress Notes * Anil NORIEGAOB:[birth year] (40 yo F)Acc No.[id number]:08/26/2024 Weight Loss Patient: Analia VALENCIA Provider: Umm Guerrero MD :1985 A ge:39 Y S ex:Female Date:08/26/2024 Address:[address] [place] [address] [id number] Subjective: * Chief Complaints: * 1 . [...] a history of sigmoid bowel resection in 2015. * Medical History: Objective: * Vitals: Assessment: * Assessment: 1. A bnormal weight [...] F requency w eekly L ot Number/Expiration 1 M edication Source A [facility] [employer] A dverse Reaction N one * Follow Up: 1 Week (Reason: GLP-1 Agonist Administration) * Billing Information: * Visit Code: * Procedure Codes: 07585 [facility] Initial Consultation (tirzepatide). 06365 [facility] - BHRT Pre-Pellet Lab Female. * Electronic signature of Romi Guerrero MD, FAAAAI on 09/03/2025 at 09:22 AM FIRST AID TEACHER Sign off status: Pending * Provider: Umm Guerrero MD Date: Generated for Dianai ng/Pat/eTransmitting on: 11/03/2024 09:22 AM FIRST AID TEACHER History and Physical Notes * HPI (History [...]
[2025-09-03 08:57] VITALS: BP 148/86; PULSE 101; RESP 18; TEMP 36.6; O2SAT 97
--- OUTSIDE RECORDS SUMMARY | 2025-09-03 09:21 | XMS_ITS | Encounter Summary ---
Author Organization [facility] Address [address] [place] [address] Care Team Providers Care Head Miller Name Role Phone Warner Travis MD Primary Care Provider [phone] Encounter Details Date Type Department Care Team (Late st Contact Info) Description 12/27/2006 Outpatient Historical [facility] Internal Medicine [id number] [place] [address] [address] [place] [address] Samia Farias MD NO ADDRESS ON FILE Social History Tobacco Use Types Packs/Day Years Used Date Smoking Tobacco: Never Assessed Comments Unknown Sex and Gender Information Value Date Recorded Sex Assigned at Not on file Legal Sex Female 5:24 AM METAL SANDER Gender Identity Not on file Sexual Orientation Not on file documented as of this encounter Last Filed Vital Signs Vital Sign Reading Time Taken Comments Blood Pressure 122/70 12/27/2006 2:00 PM METAL SANDER Pulse - - Temperature - - Respiratory Rate - - Oxygen Saturation - - Inhaled Oxygen Concentration - - Weight 73 kg (161 lb) 12/27/2006 2:00 PM METAL SANDER Height - - Body Mass Index 23.78 12/04/2006 2:30 PM METAL SANDER documented in this encounter Plan of Treatment Not on file documented as of this encounter Visit Diagnoses Not on filedocumented in this encounter Care Teams Head Miller Relationship Specialty Start Date End Date Warner Travis MD [address] [address] PCP - General Internal Medicine 08/12/14 07/03/16 documented as of this encounter
--- OUTSIDE RECORDS SUMMARY | 2025-09-03 09:21 | XMS_ITS | Encounter Summary ---
Author Organization [facility] Address 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) Social History Tobacco Use Types Packs/Day Years Used Date Smoking Tobacco: Never Assessed Comments Unknown Sex and Gender Information Value Date Recorded Sex Assigned at Not on file Legal Sex Female 5:24 AM ENVELOPE FOLDER Gender Identity Not on file Sexual Orientation Not on file documented as of this encounter Plan of Treatment Not on file documented as of this encounter Procedures Procedure Name Priority Date/Time Associated Diagnosis Comments POC , URINE Routine 06/19/2007 8:10 AM CDT HEMOGLOBIN AND HEMATOCRIT Routine 06/09/2007 7:28 AM CDT documented in this encounter Results * POC , URINE (06/19/2007 8:10 AM CDT) , URINE POC Negative Negative INTERFACE SYSTEM 06/19/2007 8:10 AM CDT us Maria De Jesus Beard MD POINT OF CARE TEST ING Edited INTERFACE SYSTEM Refer to clinic/hospital department * HEMOGLOBIN AND HEMATOCRIT (06/09/2007 7:28 AM CDT) HEMOGLOBIN 13.5 11.8 - 14.8 g/dL INTERFACE SYSTEM HEMATOCRIT 38.2 35.5 - 44.0 % INTERFACE SYSTEM 06/09/2007 7:28 AM CDT us Maria De Jesus Beard MD HEMATOLOGY ORDERAB LES Edited INTERFACE SYSTEM Refer to clinic/hospital department documented in this encounter Visit Diagnoses Diagnosis 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
--- OUTSIDE RECORDS SUMMARY | 2025-09-03 09:22 | XMS_ITS | Patient Health Record ---
Author Organization [facility] [employer] [facility] [employer] [place] ([address]) Address [address] [facility] [address] [place] [address] Support Name Relationship Address Phone Analia Bowie Guarantor Unknown Reason For Referral No Information Medications Medication SIG (Take, Route, Fr equency, [...] at bedtime Orally Once a day Active Problems Problem Type SNOMED Code ICD Code Onset Dates Problem Status W/U Status Risk Notes Problem Joint pain (84669792) Pain in unspecified joint (M25.50) Active confirmed Problem Malaise (755319695) Other malaise (R53.81) Active confirmed Problem Chronic fatigue syndrome (disorder) (78182443) Chronic fatigue, unspecified (R53.82) Active confirmed Problem Abnormal weight gain (672262785) Abnormal weight gain (R63.5) Active confirmed Problem Irritability and anger (972117011) Irritability and anger (R45.4) Active confirmed Plan Of Treatment Pending Test Test Name Order Date HRT Female Pre Pellet 08/19/2024 Medical (General) History Medical History History ICD Code small bowel obstruction s/p ileostomy reversal s/p hysterectomy endometriosis (stage 4) Surgical History Surgery Date(Month/Year) hysterectomy cholecystectomy appendectomy sigmoid bowel resection ileostomy reversal
--- OUTSIDE RECORDS SUMMARY | 2025-09-03 09:22 | XMS_ITS | Encounter Summary ---
Author Organization [facility] Address [address] [place] [address] Care Team Providers Care Supervisor Research Shop Name Role Phone Warner Travis MD Primary Care Provider [phone] Encounter Details Date Type Department Care Team (Late st Contact Info) Description 12/10/2006 Outpatient Historical [facility] Samia Farias MD NO ADDRESS ON FILE Abdominal Pain, Epigastric (Primary Dx) Social History Tobacco Use Types Packs/Day Years Used Date Smoking Tobacco: Never Assessed Comments Unknown Sex and Gender Information Value Date Recorded Sex Assigned at Not on file Legal Sex Female 5:24 AM SENIOR REGULATORY AFFAIRS SPECIALIST Gender Identity Not on file Sexual Orientation Not on file documented as of this encounter Plan of Treatment Not on file documented as of this encounter Visit Diagnoses Diagnosis Abdominal pain, epigastric- Primary documented in this encounter Care Teams Supervisor Research Shop Relationship Specialty Start Date End Date Warner Travis MD [address] [address] PCP - General Internal Medicine 08/12/14 07/03/16 documented as of this encounter
--- OUTSIDE RECORDS SUMMARY | 2025-09-03 09:22 | XMS_ITS | Encounter Summary ---
Author Organization [facility] Address [address] [place] [address] Care Team Providers Care Calciner Feeder Name Role Phone Warner Travis MD Primary Care Provider [phone] Encounter Details Date Type Department Care Team (Late st Contact Info) Description 11/11/2007 Outpatient Historical [facility] Internal Medicine [id number] [place] [address] [address] [place] [address] Samia Farias MD NO ADDRESS ON FILE Social History Tobacco Use Types Packs/Day Years Used Date Smoking Tobacco: Never Assessed Comments Unknown Sex and Gender Information Value Date Recorded Sex Assigned at Not on file Legal Sex Female 5:24 AM DIGITAL PRE PRESS OPERATOR Gender Identity Not on file Sexual Orientation Not on file documented as of this encounter Last Filed Vital Signs Vital Sign Reading Time Taken Comments Blood Pressure 130/76 11/11/2007 2:30 PM DIGITAL PRE PRESS OPERATOR Pulse - - Temperature - - Respiratory Rate - - Oxygen Saturation - - Inhaled Oxygen Concentration - - Weight 74.8 kg (165 lb) 11/11/2007 2:30 PM DIGITAL PRE PRESS OPERATOR Height - - Body Mass Index 24.37 12/04/2006 2:30 PM DIGITAL PRE PRESS OPERATOR documented in this encounter Plan of Treatment Not on file documented as of this encounter Visit Diagnoses Not on filedocumented in this encounter Care Teams Calciner Feeder Relationship Specialty Start Date End Date Warner Travis MD [address] [address] PCP - General Internal Medicine 08/12/14 07/03/16 documented as of this encounter
--- OUTSIDE RECORDS SUMMARY | 2025-09-03 09:22 | XMS_ITS | Encounter Summary ---
Author Organization [facility] Address [address] [place] [address] Care Team Providers Care Casework Specialist Name Role Phone Warner Travis MD Primary Care Provider [phone] Encounter Details Date Type Department Care Team (Late st Contact Info) Description 12/04/2007 Outpatient Historical [facility] Internal Medicine [address] [address] Deejay Palm MD [address] [place] [id number] Social History Tobacco Use Types Packs/Day Years Used Date Smoking Tobacco: Never Assessed Comments Unknown Sex and Gender Information Value Date Recorded Sex Assigned at Not on file Legal Sex 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
--- OUTSIDE RECORDS SUMMARY | 2025-09-03 09:22 | XMS_ITS | Encounter Summary ---
Author Organization [facility] Address 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 PCP: nicholas. WHO CALLED: Patient called.Pt HERE NOW SECTION 1: pt said she was referred here by the [place] office because Dr. Powell is full over there and they suggested she come here to see if one of the docs could work her in. C/o cough, ST, head congestion , and says she can see white patches in the back of her throat, fatigued, and hurts to swallow. Has BCBS (FFS). Would you like to work her in, or do you want me to ck with one of the other docs? (all of you are booked solid) DOCTOR`S RESPONSE: jovan 12/04/07 at 01:46 pm ok FINAL ACTION: kwabena 12/04/07 at 02:07 pm Spoke with patient 12/04/07 at 02:07 pm. Anna Booked appointment: NOW Electronically Signed by: Vicenta Bailey on November * Deejay Palm MD - 03/10/2008 11:12 AM CDT WEIGHT: 168lbs BLOOD PRESSURE: 120/60 Right Arm Sitting TEMPERATURE: 37.11??c Oral NURSE NAME: Carly rosado R TOBACCO USE Patient is a current tobacco user. CHIEF COMPLAINT Patient complains of cough, fever, sore throat. and fatigue. HISTORY: 3-4 days cough doyle myalgias , fever fatigue, sinus doyle worsening, ears full, denies riskpregnancy SOCIAL HISTORY: TOBACCO USE: Has no significant smoking history. DISCUSSED SMOKING: rec dc. PHYSICAL EXAMINATION: CONSTITUTIONAL: GENERAL APPEARANCE: Healthy appearing patient in no distress. NECK/THYROID: Trachea midline. No thyroid enlargement, tenderness, or mass. No supraclavicular or cervical adenopathy. RESPIRATORY: Clear to auscultation and percussion. Normal respiratory effort. CARDIOVASCULAR: CARDIAC: Regular rhythm. No murmurs, rubs, or gallops. ARTERIAL: No aortic bruits. EDEMA/VARICOSITIES OF EXTREMITIES: No edema or varicosities. GASTROINTESTINAL: ABDOMEN: Soft, non-tender, without masses. Bowel sounds active. ASSESSMENT/PLAN: 305.1-TOBACCO ABUSE enc cessation info given MEDICATIONS: CHANTIX STARTING MONTH NAV ORAL MISCELLANEOUS 0.5 MG X 11 & 1 MG X 42, DIRECTED, 30 Duration/Days Supply, status: NEW PRESCRIPTION, 12/04/2007. 311-DEPRESSION 1 mo sample lexapro given, enc reg fu 490-BRONCHITIS, UNSPECIFIED rx MEDICATIONS: ZITHROMAX Z-NAV ORAL TABLET 250 MG, DIRECTED, 1 Dispensed, status: NEW PRESCRIPTION, 12/04/2007. CHERATUSSIN AC ORAL SYRUP 100-10 MG/5ML, DIRECTED, 10 Duration/Days Supply, status: NEW PRESCRIPTION, 12/04/2007, Comment: 5 cc qid prn. ALBUTEROL INHALATION AEROSOL SOLUTION 90 MCG/ACT, 2 Four Times A Day, As Needed, 1 Dispensed, status: NEW PRESCRIPTION, 12/04/2007. Patient Education: Risks, benefits, and possible side effects of medication(s) were reviewed with the patient. The patient was allowed to ask questions to stated satisfaction. RETURN VISIT : Instructed to call if not improving. Electronically Signed by: Deejay Palm MD on , December 04, 2007 documented in this encounter Plan of Treatment Not on file documented as of this encounter Visit Diagnoses Not on filedocumented in this encounter Care Teams Flatbed Driver Relationship Specialty Start Date End Date Warner Travis MD #[address] [address] PCP - General Internal Medicine 08/12/14 07/03/16 documented as of this encounter
--- OUTSIDE RECORDS SUMMARY | 2025-09-03 09:22 | XMS_ITS | Encounter Summary ---
Author Organization [facility] Address 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 Gender Identity Not on file Sexual Orientation Not on file documented as of this encounter Plan of Treatment Not on file documented as of this encounter Procedures Procedure Name Priority Date/Time Associated Diagnosis Comments URINALYSIS W/REFLEX MICROSCOPIC Routine 06/22/2007 2:15 PM CDT CBC WITH DIFFERENTIAL Routine 06/22/2007 1:47 PM CDT CBC WITH DIFFERENTIAL Routine 06/22/2007 1:47 PM CDT C-REACTIVE PROTEIN Routine 06/22/2007 1: 47 PM CDT documented in this encounter Results * (ABNORMAL) URINALYSIS (06/22/2007 2:15 PM CDT) COLOR UA Yellow INTERFACE SYSTEM CLARITY UA Clear Clear INTERFACE SYSTEM SPECIFIC GRAVITY UA 1.020 1.001 - 1.035 INTERFACE SYSTEM PH UA 7.0 5.0 - 8.0 INTERFACE SYSTEM LEUKOCYTE ESTERASE UA Trace(A) Negative INTERFACE SYSTEM NITRITE UA Negative Negative INTERFACE SYSTEM PROTEIN UA Negative Negative INTERFACE SYSTEM GLUCOSE UA Negative Negative INTERFACE SYSTEM KETONES UA Negative Negative INTERFACE SYSTEM UROBILINOGEN UA 2(H) <=1 mg/dL INTE RFACE SYSTEM BILIRUBIN UA Negative Negative INTERFA CE SYSTEM BLOOD UA Negative Negative INTERFACE SYSTEM WBC UA 1 0 - 5 /HPF INTERFACE SYSTEM RBC UA 3 0 - 4 /HPF INTERFACE SYSTEM EPITHELIAL CELLS, URINE 0-2 /HPF INTERFACE SYSTEM AMORPHOUS CRYSTAL Few /HPF INTERFACE SYSTEM 06/22/2007 2:15 PM CDT Bhupendra Lau MD URINE ORDERABLES Edited Performing Organization Address [facility] Phone Number INTERFACE SYSTEM Refer to clinic/hospital department * CBC WITH DIFFERENTIAL (06/22/2007 1:47 PM CDT) NEUTROPHILS 69 45 - 70 % INTERFAC E SYSTEM LYMPHOCYTES 21 16 - 45 % INTERFAC E SYSTEM MONOCYTES 8 3 - 13 % INTERFACE SYSTEM EOSINOPHILS 1 0 - 7 % INTERFAC E SYSTEM BASOPHILS 0 0 - 2 % INTERFACE SYSTEM NEUTROPHIL ABSOLUTE 6.99 1.90 - 7.00 K/uL INTERFACE SYSTEM LYMPHOCYTE ABSOLUTE 2.11 0.70 - 4.50 K/uL INTERFACE SYSTEM MONOCYTE ABSOLUTE 0.80 0.10 - 1.30 K/uL INTERFACE SYSTEM EOSINOPHIL ABSOLUTE 0.14 0.00 - 0.70 K/uL INTERFACE SYSTEM BASOPHILS ABSOLUTE 0.02 0.00 - 0.20 K/uL INTERFACE SYSTEM 06/22/2007 1:47 PM CDT Bhupendra Lau MD HEMATOLOGY ORDERABLES Edited Performing Organization Address [facility] de Phone Number INTERFACE SYSTEM Refer to clinic/hospital department * (ABNORMAL) CBC WITH DIFFERENTIAL (06/22/2007 1:47 PM CDT) WBC 10.1(H) 4.0 - 9.8 K/uL INTERFACE SYSTEM RBC 4.43 3.90 - 4.90 M/uL INTERFACE SYSTEM HEMOGLOBIN 13.2 11.8 - 14.8 g/dL INTERFACE SYSTEM HEMATOCRIT 37.6 35.5 - 44.0 % INTERFACE SYSTEM MCV 84.9 82.0 - 99.0 fL INTERFACE SYSTEM MCH 29.8 27.2 - 32.6 pg INTERFACE SYSTEM MCHC 35.1 31.5 - 35.5 % INTERFACE SYSTEM RDW 12.5 11.5 - 14.5 % INTERFACE SYSTEM RDW-STDEV 38.3 37.1 - 48.7 fL INTERFACE SYSTEM PLATELETS 199 140 - 350 K/uL INTERFACE SYSTEM MPV 10.5 9.3 - 12.4 fL INTERFACE SYSTEM 06/22/2007 1:47 PM CDT Bhupendra Lau MD HEMATOLOGY ORDERABLES Edited Performing Organization Address [facility] Co de Phone Number INTERFACE SYSTEM Refer to clinic/hospital department * (ABNORMAL) C-REACTIVE PROTEIN (06/22/2007 1:47 PM CDT) CRP 7.8(H) 0.0 - 0.8 mg/dL INTERFACE SYSTEM 06/22/2007 1:47 PM CDT Bhupendra Lau MD CHEMISTRY ORDERABLES Edited Performing Organization Address [facility] Co de Phone Number INTERFACE SYSTEM Refer to clinic/hospital department documented in this encounter Visit Diagnoses Diagnosis Other disorder of menstruation and other abnormal bleeding from female genital tract- Primary documented in this encounter Care Teams Production Utility Worker Relationship Specialty Start Date End Date Warner Travis MD #[address] [address] PCP - General Internal Medicine 08/12/14 07/03/16 documented as of this encounter
--- OUTSIDE RECORDS SUMMARY | 2025-09-03 09:22 | XMS_ITS | Patient Health Record ---
Author Organization [facility] Address [facility] [place] [address] Care Team Providers Care Communication Equipment Mechanic Name Role Phone Tika Berman Unavailable [phone] Self, Referral Unavailable Unavailable Allergies No Known Allergies Reason For Referral No Information Medications Medication SIG (Take, Route, Frequency, Duration) Notes Start Date End Date Status Gabapentin 300 MG Capsule Oral; Duration: 30 Days Active traZODone HCl 50 MG Tablet Oral; Duration: 30 Days Active Gabapentin 300 MG Capsule 1 capsule Orally every 8 hours; Duration: 30 days Active Celecoxib 200 MG Capsule 1 capsule with food as needed Orally twice a day; Duration: 30 days Active HYDROcodone-Acetaminop hen 7.5-325 MG Tablet 1 tablet as needed Orally every 8 hrs; Duration: 30 days [facility]# [id number] 04/09/2024 Active clonazePAM 1 MG Tablet Oral; Duration: 3 0 Days Active Sertraline HCl 100 MG Tablet Oral; Duration: 30 Days Active Social History Tobacco Use: Social History Observation Description Date Details (start date - stop date) Never Smoker NA - NA Social History Drug/Alcohol: Social Info Question Answer Notes AUDIT-C (Standard) Did you have a drink containing alcohol in the past year? Yes How often did you have six or more drinks on one occasion in the past year? Less than monthly (1 point) How many drinks did you have on a typical day when you were drinking in the past year? 1 or 2 drinks (0 point) How often did you have a drink containing alcohol in the past year? Never (0 point) Points 1 Interpretation Negative OPIOID Risk Tool (2018 Edition) Family Hx Alcohol? No Family Hx Illegal Drugs? No Family Hx Rx Drugs? No Personal Hx Alcohol? No Personal Hx Illegal Drugs? No Personal Hx Rx Drugs? No Age between 16-45 years? Yes History of Preadolescent Sexual Abuse? No ADD, OCD, Bipolar, Schizophrenia? No Depression? No TOTAL SCORE 1 Risk Level for Opioid Use low Tobacco Use: Social Info Question Answer Notes Tobacco Control (Standard) Tobacco use: Nonsmoker Problems Problem Type SNOMED Code ICD Code Onset Dates Problem Status W/U Status Risk Notes Problem Solitary sacroiliitis (919311581) Sacroiliitis, not elsewhere classified (M46.1) Active confirmed Problem Therapeutic drug monitoring, quantitative (regime/therapy) (19590153) Encounter for therapeutic drug level monitoring (Z51.81) Active confirmed Problem Degenerative disc disease (96733035) DDD (degenerative disc disease), lumbar (M51.36) Active confirmed Problem Lumbar spondylosis (690593195) Lumbar spondylosis (M47.816) Active confirmed Problem Lumbar radiculopathy (051657177) Lumbar radiculopathy (M54.16) Active confirmed Problem Degeneration of lumbosacral intervertebral disc (34737048) DDD (degenerative disc disease), lumbosacral (M51.37) Active confirmed Problem Inflammation of sacroiliac joint (73128713) Inflammation of sacroiliac joint (M46.1) Active confirmed Plan Of Treatment Pending Test Test Name Order Date MRI: Lumbar spine w/o contrast MRI of right hip without contrast 2023 Future Test Test Name Order Date Transforaminal Epidural Steroid Injectio n for the Lumbar Region 12/13/2023 Sacroiliac Joint Injection 03/06/2024 Insurance Providers Payer Name Payer Address Payer Phone Subscriber Number Group Number Insured Name Patient Relationship to Insured Coverage Start Date Coverage End Date BCBS PPO [address] [place] [address] [id number] Lizabeth Powers Self - patient is the insured 2023 Medical (General) History Medical History History ICD Code Anxiety Endometriosis Depression Opioid Tolerance Smoking Surgical History Surgery Date(Month/Year) illeostomy take down sigmoid bowel resection kidney Hysterectomy Gall Bladder removal Appendectomy Hospitalization History Reason Date(Month/Year) surgery
--- OUTSIDE RECORDS SUMMARY | 2025-09-03 09:22 | XMS_ITS | Clinical Summary ---
Author Organization [facility] Address [address] [place] [address] Care Team Providers Care Field Producer Name Role Phone Unavailable Primary Care Provider Unavailabl e Allergies Active Allergy Reactions Criticality Noted Date Comments Codeine Other (See Comments) 12/04/2006 Mother is allergic Hydrocodone-Acetamino phen Itching Low 05/15/2016 Ketorolac Itching Low 05/15/2016 Oxycodone-Acetaminoph en Itching Low 08/12/2014 Red Dye Other (See Comments) 12/04/2006 Hyperactive Tramadol Other (See Comments) 08/12/2014 Ringing in ears Medications clonazePAM (KlonoPIN) 0.5 mg Tablet Take 0.5 mg by mouth 2 times daily as needed for Anxiety. Active DULoxetine (CYMBALTA) 60 mg Capsule, Delayed Release(E.C.) Take 60 mg by mouth daily. Active acetaminophen (TYLENOL) 325 mg tablet Take 2 Tablets (650 mg) by mouth every 6 hours as needed for Other (See Comment) (See admin instructions ). 11/14/2021 Active oxyCODONE-aceta minophen (PERCOCET) 10-325 mg TabletIndicatio ns:Flank pain Take 1 Tablet by mouth every 4 hours as needed for Pain. Max Daily Amount: 6 Tablets 15 Tablet 12/03/2021 Active Active Problems Problem Noted Date Diagnosed Date Intractable nausea and vomiting 11/13/2021 Ileostomy status 08/01/2016 Endometriosis- Stage IV. s/p TLH/BSO and rectosigmoid resection 07/10/16 07/11/2016 Anxiety 07/11/2016 Overview (07/11/2016): a few panic attacks Stricture of sigmoid colon 08/18/2014 S/P LEEP 12/13/2009 Overview (12/13/2009): 2006 has had normal colpo since Depressive disorder, not elsewhere classified Nonspecific abnormal results of liver function s tudy 12/27/2006 Unspecified adjustment reaction 12/27/2006 Abdominal pain 12/04/2006 Overview (04/07/2010): 03-13-[address] Warner Pedraza (GI) bx taken 03-31-10 negative bx, pain continues Dr. Pedraza referred her to process line operator for further evaluation Tobacco use disorder 12/04/2006 Overview (12/13/2009): Smokes 1/2 to 1 ppd started at age 4 Resolved Problems Problem Noted Date Diagnosed Date Resolved Date Headache(784.0) 11/10/2008 12/16/2009 Bronchitis, not specified as acute or chronic 12/04/19 08 11/01/2008 Candidiasis of vulva and vagina 12/27/2006 11/01/2008 Acute upper respiratory infe ctions of unspecified site 12/04/2006 11/01/2008 Encounters Date Type Department Care Team Description 06/16/2025 External Device Data ST[facility] ABSTRACTION Provider, Abstract from Last 3 Months Immunizations Immunization Administration Dates Next Due Influenza Seasonal Unspecified Formulation IM ,08/28/2008 Tetanus Immune Globulin 10/28/2009 Family History Medical History Relation Name Comments Heart Disease Father High Cholesterol Father Hypertension Father Cancer Maternal Grandmother Colon Cancer Maternal Grandmother Hypertension Mother Thyroid Disease Mother Relation Name Status Comments Father Alive Maternal Grandmother Mother Alive Social History Tobacco Use Types Packs/Day Years Used Date Smoking Tobacco: Every Day Cigarettes 0.5 10 Smokeless Tobacco: Former Quit: 07/09/2016 Alcohol Use Standard Drinks/Week Comments Yes 2.5 (1 standard drink = 0.6 oz p ure alcohol) social Comments No Sex and Gender Information Value Date Recorded Sex Assigned at Not on file Legal Sex Female 5:24 AM CYBER DEFENSE FORENSICS ANALYST Gender Identity Not on file Sexual Orientation Not on file 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 Not on file Not on file No t on file Last Filed Vital Signs Vital Sign Reading Time Taken Comments Blood Pressure 145/93 12/03/2021 8:00 PM CYBER DEFENSE FORENSICS ANALYST Pulse 69 11/14/2021 4:31 AM CYBER DEFENSE FORENSICS ANALYST Temperature 36.8 C (98.3 F) 12/03/2021 5:12 PM CYBER DEFENSE FORENSICS ANALYST Respiratory Rate 18 12/03/2021 5:12 PM CYBER DEFENSE FORENSICS ANALYST Oxygen Saturation 96% 12/03/2021 9:15 PM CYBER DEFENSE FORENSICS ANALYST Inhaled Oxygen Concentration - - Weight 88.5 kg (195 lb) 12/03/2021 5:12 PM CYBER DEFENSE FORENSICS ANALYST Height 175.3 cm (5' 9) 12/03/2021 5:12 PM CYBER DEFENSE FORENSICS ANALYST Body Mass Index 28.8 12/03/2021 5:12 PM CYBER DEFENSE FORENSICS ANALYST Plan of Treatment Health Maintenance Due Date Last Done Comments HEPATITIS B VACCINES (1 of 3 - 19+ 3-dose series) 2003 HPV VACCINES (1 - 3-dose SCD M series) 2011 DTAP/TDAP/TD VACCINES (2 - T d or Tdap) 07/21/2022 07/21/2012 BREAST CANCER SCREENING 2024 COLORECTAL SCREENING 08/03/2024 08/03/2016, 07/09/2016, 08/17/2014, Additional history exists INFLUENZA VACCINE (#1) 2025 10/28/2013, 2007 Medical Devices Implanted Type Area Instructional Design Technologist Device Identifier Shelf Expiration Date Model / Serial / Lot Barrier Seprafilm 5x6in [id number] - [id number] Implanted:Qty : 1 on 11/09/2014 by Monik Reddy MD at [facility] [employer] Barrier N/A: Abdomen [employer] 10/27/2016 [id number] / / [id number] Barrier Seprafilm 5x6in [id number] - [id number] Implanted:Qty : 1 on 11/09/2014 by Monik Reddy MD at [facility] [employer] Barrier N/A: Abdomen [employer] 10/27/2016 [id number] / / [id number] Barrier Seprafilm 5x6in [id number] - [id number] Implanted:Qty : 1 on 07/10/2016 by Monik Reddy MD at [facility] [employer] Barrier Abdomen [employer] [id number] 07/27/2018 [id number] / / [id number] Procedures Procedure Name Priority Date/Time Associated Diagnosis Comments [place] SIGMOIDOSCOPY FLX DX W/COLLJ SPEC BR/WA IF PFRMD Routine 08/03/2016 4:24 PM CDT Ileostomy status ([facility]) from Last 3 Months or Most Recently Relevant to Health Maintenance Results * NJ SIGMOIDOSCOPY FLX DX W/COLLJ SPEC BR/WA IF PFRMD (08/03/2016 4:24 PM CDT) Narrative [facility] - 08/03/2016 4:24 PM CDT Monik Reddy MD 08/03/2016 4:24 PM See progress note Monik Reddy MD GI PROCEDURE ORDERABLES Final Result [facility] from Last 3 Months or Most Recently Relevant to Health Maintenance Insurance [employer] OPEN ACCESS HMO RX [facility] [employer] RX [employer] (INTERNAL) [facility] Internal Plans Advance Directives For more information, please contact: [phone] * Full Code (Latest Code Status on File) Date Activated Date Inactivated Comments 11/13/2021 1:11 PM 11/14/2021 1:45 PM * Full Code Date Activated Date Inactivated Comments 08/30/2016 3:01 PM 09/02/2016 3:49 PM * Full Code Date Activated Date Inactivated Comments 07/10/2016 5:40 PM 07/14/2016 6:33 PM * Full Code Date Activated Date Inactivated Comments 07/10/2016 3:12 PM 07/10/2016 5:40 PM * Full Code Date Activated Date Inactivated Comments 07/10/2016 7:45 AM 07/10/2016 3:12 PM
--- OUTSIDE RECORDS SUMMARY | 2025-09-03 09:22 | XMS_ITS | Encounter Summary ---
Author Organization [facility] Address [address] [place] [address] Phone Care Team Providers Care Crane Follower Name Role Phone Warner Travis MD Primary Care Provider [phone] Christiano Neves MD Unavailable Reason for Referral * Radiology Services (Routine) - Closed Specialty Diagnoses / Procedures Referred By Shannon alejandro Referred To Contact Radiology Diagnoses Pre-op testing Procedures XR CHEST 2 VIEWS Celestine Peck MD Phone: tel: fax: Referral ID Status Reason Start Date Expiration Date Visits Re quested Visits Authorized [id number] Closed 11/10/2024 1 1 ER SANDER * Radiology Services (Routine) - Closed Specialty Diagnoses / Procedures Referred By Shannon alejandro Referred To Contact Radiology Diagnoses Pre-op testing Procedures EKG 12 LEAD Celestine Peck MD Phone: tel: fax: Referral ID Status Reason Start Date Expiration Date Visits Re quested Visits Authorized [id number] Closed 11/10/2024 1 1 ER SANDER Encounter Details Date Type Department Care Team (Latest Contact Info) Description 11/10/2024 Transcribe Orders [facility] Preop/Pacu II [address] [place] [address] Celestine Peck MD [address] [place] [address] Pre-op testing (Primary Dx) Social History Tobacco Use Types Packs/Day Years Used Date Smoking Tobacco: Every Day Cigarettes Smokeless Tobacco: Never Alcohol Use Standard Drinks/Week Comments Yes 0 (1 standard drink = 0.6 oz pur e alcohol) occasionally Sexually Active Control Partners Comments Not Currently Comments No Sex and Gender Information Value Date Recorded Sex Assigned at Not on file Legal Sex Female 7:43 PM CDT Gender Identity Not on file Sexual Orientation Not on file 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 Narrative 11/11/2024 12:12 PM SEALER SANDER EXAM DESCRIPTION: XR CHEST 2 VIEWS REASON FOR STUDY: no chest complaints. pre-op exam. left knee surgery 11/18/2024. Hx of smoker TECHNIQUE: PA and lateral radiographic view(s) of the chest. COMPARISON: None FINDINGS: LUNGS: There is no discrete consolidation in either lung. No effusion or pneumothorax. HEART/MEDIASTINUM: Cardiac silhouette and mediastinal contours are within normal limits. LINES/TUBES: None. BONES: No acute osseous abnormality. THIS IS AN ELECTRONICALLY VERIFIED FINAL REPORT 11/11/2024 12:10 PM - Electronically signed by Fanny Cook M.D. TW: TW Report ID: [id number] Reading Location: [id number] Procedure Note Fanny Cook MD - 11/11/2024 EXAM DESCRIPTION: XR CHEST 2 VIEWS REASON FOR STUDY: no chest complaints. pre-op exam. left knee surgery 11/18/2024. Hx of smoker TECHNIQUE: PA and lateral radiographic view(s) of the chest. COMPARISON: None FINDINGS: LUNGS: There is no discrete consolidation in either lung. No effusion or pneumothorax. HEART/MEDIASTINUM: Cardiac silhouette and mediastinal contours are within normal limits. LINES/TUBES: None. BONES: No acute osseous abnormality. THIS IS AN ELECTRONICALLY VERIFIED FINAL REPORT 11/11/2024 12:10 PM - Electronically signed by Fanny Cook M.D. TW: TW Report ID: [id number] Reading Location: [id number] IMPRESSION: No acute cardiopulmonary abnormality. us Celestine Peck MD IMG DIAGNOSTIC ORDERABLES Final Result * EKG 12 LEAD (11/10/2024 11:52 AM SEALER SANDER) Ventricular Rate 91 BPM EXTERNAL EKG Atrial Rate 91 BPM EXTERNAL EKG P-R Interval 146 ms EXTERNAL EKG QRS Duration 76 ms EXTERNAL EKG Q-T Duration 356 ms EXTERNAL EKG QTC CALCULATION 437 ms EXTERNAL EKG P [place] 48 degrees EXTERNAL EKG R [place] 55 degrees EXTERNAL EKG T [place] 72 degrees EXTERNAL EKG 11/10/2024 11:5 2 AM SEALER SANDER Impressions EXTERNAL EKG - 11/11/2024 7:26 PM SEALER SANDER Normal sinus rhythm Normal ECG When compared with ECG of 29-JUL-2024 22:19, No significant change was found Confirmed by STORM DE JESUS ([id number]) on 11/11/2024 7:26:35 PM Narrative Procedure Note Storm De Jesus MD - 11/11/2024 IMPRESSION: Normal sinus rhythm Normal ECG When compared with ECG of 29-JUL-2024 22:19, No significant change was found Confirmed by STORM DE JESUS ([id number]) on 11/11/2024 7:26:35 PM us Celestine Peck MD IMG ECG ORDERABLES Final Result EXTERNAL EKG * (ABNORMAL) CMP (COMPREHENSIVE METABOLIC PANEL) (11/10/2024 11:44 AM SEALER SANDER) SODIUM 141 136 - 145 mmol/L 11/10/2024 1:37 PM [facility] POTASSIUM 4.4 3.5 - 5.1 mmol/L 11/10/2024 1:37 PM [facility] CHLORIDE 108(H) 98 - 107 mmol/L 11/10/2024 1:37 PM [facility] CO2, VENOUS 24 22 - 30 mmol/L 11/10/2024 1:37 PM [facility] ANION GAP 13.4 <18.0 mmol/L 11/10/2024 1:37 PM [facility] GLUCOSE 86 70 - 99 mg/dL 11/10/2024 1:37 PM [facility] BUN 15 5 - 18 mg/dL 11/10/2024 1:37 PM [facility] CREATININE, BLOOD 0.91 0.60 - 1.00 mg/dL 11/10/2024 1:37 PM [facility] BUN/CREATININE RATIO 16 12 - 20 ratio 11/10/2024 1:37 PM [facility] TOTAL PROTEIN 7.8 6.0 - 8.0 g/dL 11/10/2024 1:37 PM [facility] ALBUMIN 4.6 3.5 - 5.0 g/dL 11/10/2024 1:37 PM [facility] A/G RATIO 1.4 1.0 - 2.2 11/10/2024 1:37 PM [facility] CALCIUM 9.6 8.7 - 10.5 mg/dL 11/10/2024 1:37 PM [facility] T BILI 0.2 0.2 - 1.2 mg/dL 11/10/2024 1:37 PM [facility] SGOT (AST) 24 6 - 42 U/L 11/10/2024 1:37 PM [facility] SGPT (ALT) 31 0 - 55 U/L 11/10/2024 1:37 PM [facility] ALKALINE PHOSPHATASE 75 40 - 150 U/L 11/10/2024 1:37 PM [facility] IS THE PATIENT REQUIRED TO BE FASTING? No 11/10/2024 1:37 PM [facility] GFR, ESTIMATED >60 >=60 11/10/2024 1:37 PM [facility] Comment: Creatinine Clearance is the preferred criteria for selecting drug dose adjustments in renally impaired patients. The GFR is provided as additional pertinent clinical information. GFR is reported in mL/min/1.73 sq m. Calculation based on the Chronic Kidney Disease Epidemiology Collaboration (CKD- EPI) equation refit without adjustment for race. GFR, EST. >60 >=60 025 1:37 PM [facility] GFR, EST. NONAFRICAN >60 >=60 11/10/2024 1:37 PM [facility] Blood Venipuncture / Unknown 11/10/2024 11:44 AM SEALER SANDER 11/10/2024 12:52 PM SEALER SANDER Celestine Peck MD CHEMISTRY ORDERABLES Final Resul t [facility] [place] [address] documented in this encounter Visit Diagnoses Diagnosis Pre-op testing- Primary Preoperative examination, unspecified Pre-op testing Preoperative examination, unspecified Pre-op testing Preoperative examination, unspecified documented in this encounter Care Teams Crane Follower Relationship Specialty Start Date End Date Warner Travis MD [address] [facility] [address] [place] [address] PCP - General Family Medicine 11/03/24 Christiano Neves MD [address] [facility] [address] [place] [address] Consulting Physician Urology 08/28/24 documented as of this encounter
--- OUTSIDE RECORDS SUMMARY | 2025-09-03 09:22 | XMS_ITS | Encounter Summary ---
Author Organization [facility] Address [address] [place] [address] Care Team Providers Care Almond Roaster Name Role Phone Warner Travis MD Primary Care Provider [phone] Encounter Details Date Type Department Care Team (Late st Contact Info) Description 12/04/2006 Outpatient Historical [facility] Internal Medicine [address] [address] Samia Farias MD NO ADDRESS ON FILE Social History Tobacco Use Types Packs/Day Years Used Date Smoking Tobacco: Never Assessed Comments Unknown Sex and Gender Information Value Date Recorded Sex Assigned at Not on file Legal Sex Female 5:24 AM COIL CONNECTOR Gender Identity Not on file Sexual Orientation Not on file documented as of this encounter Last Filed Vital Signs Vital Sign Reading Time Taken Comments Blood Pressure 140/90 12/04/2006 2:30 PM COIL CONNECTOR Pulse - - Temperature 36.7 C (98 F) 12/04/2006 2:30 PM COIL CONNECTOR Respiratory Rate - - Oxygen Saturation - - Inhaled Oxygen Concentration - - Weight 71.2 kg (157 lb) 12/04/2006 2:30 PM COIL CONNECTOR Height 175.3 cm (5' 9) 12/04/2006 2:30 PM COIL CONNECTOR Body Mass Index 23.18 12/04/2006 2:30 PM COIL CONNECTOR documented in this encounter Plan of Treatment Not on file documented as of this encounter Visit Diagnoses Not on filedocumented in this encounter Care Teams Almond Roaster Relationship Specialty Start Date End Date Warner Travis MD [address] [place] [address] PCP - General Internal Medicine 08/12/14 07/03/16 documented as of this encounter
--- OUTSIDE RECORDS SUMMARY | 2025-09-03 09:22 | XMS_ITS | Clinical Summary ---
Author Organization [facility] Address [address] [place] [address] Phone Care Team Providers Care Clearance Rep Name Role Phone Warner Travis MD Primary Care Provider [phone] Christiano Neves MD Unavailable Allergies Active Allergy Reactions Criticality Noted Date Comments Red Dye #40 (Allura Red) Itching 11/11/2024 ITCHING AND HYPERACTIVITY Wound Dressing Adhesive Other (see Comments) 06/10/2025 EXOFIN SKIN GLUE CAUSES BLISTERS Medications ARIPiprazole (Abilify) 10 MG Tablet Take 10 mg by mouth every morning. Active traZODone (DESYREL) 100 MG Tablet Take 200 mg by mouth nightly. Active meloxicam (Mobic) 15 MG Tablet Take 15 mg by mouth daily. Active ezetimibe (ZETIA) 10 MG Tablet Take 1 Tablet by mouth daily. 90 Tablet 3 Active Additional Information Patient not taking.Reported on 05/27/2025 naloxone HCl (Narcan) 4 MG/0.1ML Liquid 1 [place] by Nasal route as needed for Opioid Reversal. Administer in one nostril for symptoms of overdose (severe sleepiness, breathing problems, not responsive). Call 911. May repeat 1 spray in alternate nostril in 2-3 minutes if needed. 2 Each Active Additional Information Patient not taking.Reported on 06/10/2025 ALPRAZolam 2 MG Tablet Take 2 mg by mouth 2 times daily as needed for Anxiety. Active lamoTRIgine (LaMICtal) 200 MG TabletIndicatio ns:Mild Bipolar per patient Take 200 mg by mouth every morning. Indications: Mild Bipolar per patient Active sertraline (ZOLOFT) 50 MG Tablet Take 50 mg by mouth every morning. Active acetaminophen (Tylenol) 325 MG Tablet Take 650 mg by mouth every 4 hours as needed. Active HYDROcodone-jamal taminophen (NORCO) 7.5-325 MG Tablet Take 1 Tablet by mouth every 4 hours as needed. Active DOCUSATE SODIUM PO Take by mouth as needed. Active Active Problems Problem Noted Date Diagnosed Date Rotator cuff tendinitis, right 06/10/2025 Rotator cuff tendinitis, left 03/31/2025 Small bowel obstruction 03/25/2025 Chondromalacia patellae of left knee 11/18/2024 Chronic GERD 09/05/2022 Overview (03/25/2025): Added automatically from request for surgery [id number] Mixed hyperlipidemia 07/12/2022 Anxiety and depression 07/11/2016 Overview (03/24/2025): a few panic attacks Tobacco use disorder 12/04/2006 Overview (03/25/2025): Smokes 1/2 to 1 ppd started at age 4 IBS (irritable bowel syndrome) Diverticulitis Obesity Encounters Date Type Department Care Team Description 07/21/2025 5:45 PM CDT - 07/21/2025 9:47 PM CDT Emergency [facility] Emergency [address] [place] [address] Viri Lo, [place] Constipation Discharge Disposition: Discharged to home or Selfcare 07/21/2025 Travel 06/10/2025 7:37 AM CDT Anesthesia Event [facility] Periop [address] [place] [address] Javier Porras MD 06/10/2025 7:10 AM CDT - 06/10/2025 9:10 AM CDT Surgery [facility] Periop [address] [place] [address] Celestine Peck MD ARTHROSCOPY RIGHT SHOULDER WITH DEBRIDEMENT, ACROMIOPLASTY 06/10/2025 5:22 AM CDT - 06/10/2025 11:15 AM CDT Hospital Encounter [facility] Preop/Pacu II [address] [place] [address] Celestine Peck MD Rotator cuff tendinitis, right Discharge Disposition: Discharged to home or Selfcare 06/10/2025 Travel from Last 3 Months Immunizations Immunization Administration Dates Next Due Influenza Vaccine greater than 3 yrs 10/28/2013 Influenza Vaccine,unspecified Formulation 2011 Influenza, Seasonal, Injectable, Undefined 08/28 TDAP Vaccine 07/21/2012 Tetanus Immune Globulin 10/28/2009 Tetanus Toxoid, Unspecified Formulation 10/28/19 10 Family History Medical History Relation Name Comments Coronary Artery Disease Father Heart Surgery Father cardiac cath, 2 stents High Cholesterol Father Colon Cancer Maternal Grandmother Hypertension Mother Thyroid Disease Mother other Mother a-fib Dementia Paternal Grandfather Congestive Heart Failure Paternal Grandmother Heart Disease Paternal Grandmother Heart Attack Paternal Uncle 1 Heart Attack Paternal Uncle 2 Relation Name Status Comments Father Alive Maternal Grandfather Maternal Grandmother Mother Alive Paternal Grandfather Paternal Grandmother Paternal Uncle 1 Alive Paternal Uncle 2 Alive Social History Tobacco Use Types Packs/Day Years Used Date Smoking Tobacco: Every Day Cigarettes 0.5 20.8 Started: 2004 Smokeless Tobacco: Never Tobacco Cessation:Ready to Q uit: Not Asked; Counseling Given: Not Answered Comments:Smokes 5 cigarettes/ day Alcohol Use Standard Drinks/Week Comments Not Currently 0 (1 standard drink = 0.6 oz pur e alcohol) occasionally [employer] Utilities Answer Date Recorded In the past 12 months has [employer], gas, oil, or water [employer] threatened to shut off services in your home? No 03/24/2025 PHQ-2 Answer Date Recorded Total Score - Questions 1-9 0 02/26 Hunger Vital Sign Answer Date Recorded Within the past 12 months, y ou worried that your food would run out before you got the money to buy more. Never true 03/24/20 25 Within the past 12 months, t he food you bought just didn't last and you didn't have money to get more. Never true 03/24/2025 PRAPARE - Transportation Answer Date Re corded In the past 12 months, has l ack of transportation kept you from medical appointments or from getting medications? No 02/26 In the past 12 months, has l ack of transportation kept you from meetings, work, or from getting things needed for daily living? No 03/24/2025 Housing Stability Vital Sign Answer Lopez e Recorded In the last 12 months, was t here a time when you were not able to pay the mortgage or rent on time? No 03/24/2025 In the past 12 months, how m any times have you moved where you were living? 0 03/24/2025 [facility] were you homeless or living in a penitentiary (including now)? 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 Not on file Not on file Not on file Last Filed Vital Signs Vital Sign Reading Time Taken Comments Blood Pressure 137/85 07/21/2025 7:30 PM CDT Pulse 94 07/21/2025 7:30 PM CDT Temperature 36.9 C (98.4 F) 07/21/2025 5:44 PM CDT Respiratory Rate 12 07/21/2025 7:30 PM CDT Oxygen Saturation 99% 07/21/2025 7:30 PM CDT Inhaled Oxygen Concentration - - Weight 110.7 kg (244 lb) 07/21/2025 5:44 PM CDT Height 175.3 cm (5' 9) 07/21/2025 5:44 PM CDT Body Mass Index 36.03 07/21/2025 5:44 PM CDT Plan of Treatment Health Maintenance Due Date Last Done Comments Mammogram 1984 Hepatitis B Immunization (1 of 3 - 19+ 3-dose series) 2003 Pneumococcal Immunization Combined (1 of 2 - PCV) 2003 Human Papillomavirus (HPV) Immunization (1 - 3-dose SCDM series) 2011 Td Immunization Every 10 Yea rs (Adults With 1 Tdap) 07/21/2022 07/21/2012 Discussion re Starting/Frequency of Mammograms 2024 Influenza Immunization (#1) 2025 01/0 10/2013, 07/08/2012, 08/28/2008 SARS-COV-2 Immunization ( season) 2025 10/22/2021, 10/01/2021 Respiratory Syncytial Virus (RSV) Immunization (Adult) (1 - 1-dose 75+ series) 2059 DTaP/Tdap/Td Immunization Discontinued 07/21/2012 TdaP Immunization Discontinued 07/21/2012 Hepatitis C Virus (HCV) Screening Completed 11/19/2023, 10/04/2022 Meningococcal Immunization (ACWY) Aged Out No longer eligible based on patient's age to complete this topic Rotavirus Immunization Aged Out No lo nger eligible based on patient's age to complete this topic Procedures Procedure Name Priority Date/Time Associated Diagnosis Comments CT ABDOMEN PELVIS W/ CONTRAST Stat with Interpretation 07/21/2025 7:50 PM CDT URINALYSIS REFLEX IF INDICATED BY ABNORMAL RESULTS STAT 07/21/2025 6:34 PM CDT XR ABDOMEN KUB FLAT PLATE STAT 07/21/2025 6:16 PM CDT CBC WITH AUTO DIFFERENTIAL STAT 07/21/2025 6:13 PM CDT LIPASE STAT 07/21/2025 6:13 PM CDT CMP (COMPREHENSIVE METABOLIC PANEL) STAT 07/21/2025 6:13 PM CDT COMPLETE BLOOD COUNT (CBC) WITH DIFF STAT 07/21/2025 6:[address] - ABDOMEN/PELVIS 07/21/2025 12:00 AM CDT NERVE BLOCK Routine 06/10/2025 9:23 AM CDT PATHOLOGY SURGICAL Routine 06/10/2025 8: 23 AM CDT INTUBATION IN OR Routine 06/10/2025 8:07 AM CDT SHLDR ARTHROSCOP,DIAGNOS TIC 06/10/2025 7:17 AM CDT SYNOVITIS RIGHT SHOULDER, PARTIAL ROTATOR SLAP TEAR Special Needs RESCHEDULED FROM 06/02 HAD HYST Hx of anxiety/depression 5ft 9in 240lb from Last 3 Months Results * CT ABDOMEN PELVIS W/ CONTRAST (07/21/2025 7:50 PM CDT) Anatomical Region Laterality Modality Abdomen N/A Computed Tomogra phy 07/21/2025 7:50 PM CDT Impressions 07/22/2025 5:39 AM CDT IMPRESSION: No CT findings to explain the patient's symptoms. Narrative 07/22/2025 5:[address] ABDOMEN PELVIS W/ CONTRAST : 07/21/2025 7:50 PM DICTATING PHYSICIAN: BROCK BOYLE, [facility]. HISTORY: As below. ADDITIONAL TECHNOLOGIST HISTORY: Bowel obstruction suspected, c/o epigastric pain radiating to RUQ x 6 days. TECHNIQUE: Multiple helical axial images were obtained through the abdomen and pelvis with contrast. Multiplanar reformats were performed. Image acquisition performed utilizing automated exposure control (AEC) and iterative reconstruction software in order to lower patient dose. IV CONTRAST TYPE AND VOLUME: Administered contrast documentation is located within the patient's electronic health record. RADIATION DOSE: DLP 04/28/1949 COMPARISON: 03/16/2025 FINDINGS: Lung bases: Clear. ABDOMEN: Liver: No focal lesion or intrahepatic bile duct dilatation. Portal venous system is patent. Gallbladder: Cholecystectomy. Spleen: Within normal limits. No evidence for splenomegaly or focal lesion. Pancreas: No focal lesion or pancreatic ductal dilatation. Adrenal glands: No focal nodule. Kidneys: No focal suspicious lesion or obstructive uropathy evident. Abdominal aorta and IVC: Abdominal aorta is normal in caliber. IVC is grossly normal. Retroperitoneum: Normal Mesentery/Peritoneum: Normal. Stomach and small bowel: Within normal limits. No evidence for obstruction. PELVIS: Free fluid: No free fluid or fluid collection. Reproductive: Hysterectomy. Bladder: Normal contour and wall thickness. Lymphadenopathy: No pathologic lymphadenopathy. Colon: Partial resection changes. Radiodensities within the cecum and left colon may represent ingested tablets. Appendix: Removed Skeletal structures and soft tissues: Age-appropriate degenerative changes. No suspicious osseous lytic or blastic process. No soft tissue abnormality. Procedure Note Brock Boyle MD - 07/22/2025 CT ABDOMEN PELVIS W/ CONTRAST : 07/21/2025 7:50 PM DICTATING PHYSICIAN: BROCK BOYLE [facility]. HISTORY: As below. ADDITIONAL TECHNOLOGIST HISTORY: Bowel obstruction suspected, c/oepigastric pain radiating to RUQ x 6 days. TECHNIQUE: Multiple helical axial images were obtained through the abdomen and pelviswith contrast. Multiplanar reformats were performed. Image acquisitionperformed utilizing automated exposure control (AEC) and iterativereconstruction software in order to lower patient dose. IV CONTRAST TYPE AND VOLUME: Administered contrast documentation islocated within the patient's electronic health record. RADIATION DOSE: DLP 04/28/1949 COMPARISON: 03/16/2025 FINDINGS: Lung bases: Clear. ABDOMEN: Liver: No focal lesion or intrahepatic bile duct dilatation. Portal venoussystem is patent. Gallbladder: Cholecystectomy. Spleen: Within normal limits. No evidence for splenomegaly or focallesion. Pancreas: No focal lesion or pancreatic ductal dilatation. Adrenal glands: No focal nodule. Kidneys: No focal suspicious lesion or obstructive uropathy evident. Abdominal aorta and IVC: Abdominal aorta is normal in caliber. IVC isgrossly normal. Retroperitoneum: Normal Mesentery/Peritoneum: Normal. Stomach and small bowel: Within normal limits. No evidence forobstruction. PELVIS: Free fluid: No free fluid or fluid collection. Reproductive: Hysterectomy. Bladder: Normal contour and wall thickness. Lymphadenopathy: No pathologic lymphadenopathy. Colon: Partial resection changes. Radiodensities within the cecum and leftcolon may represent ingested tablets. Appendix: Removed Skeletal structures and soft tissues: Age-appropriate degenerativechanges. No suspicious osseous lytic or blastic process. No soft tissueabnormality. IMPRESSION: No CT findings to explain the patient's symptoms. [facility] Fi nal Result * Urinalysis w/ Reflex (07/21/2025 6:34 PM CDT) SPECIFIC GRAVITY 1.020 1.003 - 1.030 07/21/2025 6:59 PM CDT [facility] URINE PH 6.0 5.0 - 9.0 07/21/2025 6:59 PM CDT [facility] WBC ESTERASE Negative Negative 07/21/2025 6:59 PM CDT [facility] NITRITE Negative Negative 07/21/2025 6:59 PM CDT [facility] PROTEIN, RANDOM URINE Negative Negative 07/21/2025 6:59 PM CDT [facility] URINE GLUCOSE, QUAL Negative Negative 07/21/2025 6:59 PM CDT [facility] URINE KETONES Negative Negative 07/21/2025 6:59 PM CDT [facility] UROBILINOGEN Normal Normal mg/dL 07/21/2025 6:59 PM CDT [facility] URINE BLOOD Negative Negative nohemi/ul 07/21/2025 6:59 PM CDT [facility] URINALYSIS COLOR Light Yellow 2024 6:59 PM CDT [facility] URINALYSIS CLARITY Clear 07/21/2025 6:59 PM CDT [facility] Urine URINE SPECIMEN / Unknown Non-Phlebotomy Collection / Unknown 07/21/2025 6:34 PM CDT 07/21/2025 6:44 PM CDT us Viri Lo PAC URINE ORDERABLES Fin al Result [facility] #[address] [place] [address] * XR ABDOMEN KUB FLAT PLATE (07/21/2025 6:16 PM CDT) Anatomical Region Laterality Modality Abdomen N/A Digital Radiogra phy 07/21/2025 6:16 PM CDT Narrative 07/21/2025 6:49 PM CDT DICTATING PHYSICIAN: Rashi Duarte EXAM: XR ABDOMEN KUB FLAT PLATE DATE: 07/21/2025 6:16 PM COMPARISON: March 25, 2025 CLINICAL HISTORY: Ordering clinician listed reason for examination w/co epigastric pain that radiates to RUQ starting 6 days ago and worsening since. PT state that she has Hx of SBO and hasn't had BP for 6 days REFERRING PROVIDER: VIRI LO FINDINGS: Single view of the abdomen. Cholecystectomy clips. Gas and stool within the colon. Formed stool within the rectum. No significant small bowel distention. No findings to suggest mechanical obstruction. Procedure Note Rashi Duarte MD - 07/21/2025 DICTATING PHYSICIAN: Rashi Duarte EXAM: XR ABDOMEN KUB FLAT PLATE DATE: 07/21/2025 6:16 PM COMPARISON: March 25, 2025 CLINICAL HISTORY: Ordering clinician listed reason for examination w/coepigastric pain that radiates to RUQ starting 6 days ago and worseningsince. PT state that she has Hx of SBO and hasn't had BP for 6 days REFERRING PROVIDER: VIRI LO FINDINGS: Single view of the abdomen. Cholecystectomy clips. Gas andstool within the colon. Formed stool within the rectum. No significantsmall bowel distention. No findings to suggest mechanical obstruction. Viri Lo PAC IMG DIAGNOSTIC ORDER KIMBERLY Final Result * (ABNORMAL) CBC with Auto Differential (07/21/2025 6:13 PM CDT) WBC 8.38 4.00 - 12.00 10(3)/mcL 07/21/2025 6:53 PM CDT [facility] RBC 4.83 3.80 - 5.30 10(6)/mcL 07/21/2025 6:53 PM CDT [facility] HEMOGLOBIN (HGB) 14.1 12.0 - 15.8 g/dL 07/21/2025 6:53 PM CDT [facility] HEMATOCRIT (HCT) 41.4 36.0 - 47.0 % 07/21/2025 6:53 PM CDT [facility] MCV 85.7 82.0 - 96.0 fL 07/21/2025 6:53 PM CDT [facility] MCH 29.2 26.0 - 34.0 pg 07/21/2025 6:53 PM CDT [facility] MCHC 34.1 31.0 - 36.0 g/dL 07/21/2025 6:53 PM CDT [facility] PLATELET COUNT 268 140 - 440 10(3)/mcL 07/21/2025 6:53 PM CDT [facility] RDW 12.3 11.8 - 15.5 % 07/21/2025 6:53 PM CDT [facility] MPV 9.2(L) 9.7 - 12.4 fL 07/21/2025 6:53 PM CDT [facility] NEUTROPHILS 51.7 47.0 - 73.0 % 07/21/2025 6:53 PM CDT [facility] LYMPHOCYTES 40.8 18.0 - 42.0 % 07/21/2025 6:53 PM CDT [facility] MONOCYTES 6.1 4.0 - 12.0 % 07/21/2025 6:53 PM CDT [facility] EOSINOPHILS 0.8 0.0 - 5.0 % 07/21/2025 6:53 PM CDT [facility] BASOPHILS 0.4 0.0 - 1.0 % 07/21/2025 6:53 PM CDT [facility] IMMATURE GRANULOCYTE 0.2 0.0 - 0.4 % 07/21/2025 6:53 PM CDT [facility] ABSOLUTE NEUTROPHILS 4.33 1.60 - 7.70 10(3)/mcL 07/21/2025 6:53 PM CDT [facility] ABSOLUTE LYMPHOCYTES 3.42(H) 1.30 - 3.20 10(3)/mcL 07/21/2025 6:53 PM CDT [facility] ABSOLUTE MONOCYTES 0.51 0.20 - 1.00 10(3)/mcL 07/21/2025 6:53 PM CDT [facility] ABSOLUTE EOSINOPHIL 0.07 0.00 - 0.40 10(3)/mcL 07/21/2025 6:53 PM CDT [facility] ABSOLUTE BASOPHILS 0.03 0.00 - 0.10 10(3)/mcL 07/21/2025 6:53 PM CDT [facility] ABSOLUTE IMMATURE GRANULOCYTE 0.02 0.00 - 0.03 10 (3) mcL. 07/21/2025 6:53 PM CDT [facility] NRBC PER 100 WBC 0 07/21/20 6:53 PM CDT [facility] Blood Venipuncture / Unknown 07/21/2025 6:13 PM CDT 07/21/2025 6:49 PM CDT Viri Lo PAC HEMATOLOGY ORDERABLE S Final Result [facility] [address] [place] [address] * Lipase (07/21/2025 6:13 PM CDT) LIPASE 10 8 - 78 U/L 07/21/2025 7:10 PM CDT [facility] Blood Venipuncture / Unknown 07/21/2025 6:13 PM CDT 07/21/2025 6:49 PM CDT Viri Lo PAC CHEMISTRY ORDERABLES Final Result [facility] [address] [place] [address] * (ABNORMAL) CMP (07/21/2025 6:13 PM CDT) SODIUM 142 136 - 145 mmol/L 07/21/2025 7:10 PM CDT [facility] POTASSIUM 4.2 3.5 - 5.1 mmol/L 07/21/2025 7:10 PM CDT [facility] CHLORIDE 106 98 - 107 mmol/L 07/21/2025 7:10 PM CDT [facility] CO2, VENOUS 23 22 - 30 mmol/L 07/21/2025 7:10 PM CDT [facility] ANION GAP 17.2 <18.0 mmol/L 07/21/2025 7:10 PM CDT [facility] GLUCOSE 90 70 - 99 mg/dL 07/21/2025 7:10 PM CDT [facility] BUN 15 5 - 18 mg/dL 07/21/2025 7:10 PM CDT [facility] CREATININE, BLOOD 0.71 0.60 - 1.00 mg/dL 07/21/2025 7:10 PM CDT [facility] BUN/CREATININE RATIO 21(H) 12 - 20 ratio 07/21/2025 7:10 PM CDT [facility] TOTAL PROTEIN 7.0 6.0 - 8.0 g/dL 07/21/2025 7:10 PM CDT [facility] ALBUMIN 4.6 3.5 - 5.0 g/dL 07/21/2025 7:10 PM CDT [facility] A/G RATIO 1.9 1.0 - 2.2 07/21/2025 7:10 PM CDT [facility] CALCIUM 9.8 8.7 - 10.5 mg/dL 07/21/2025 7:10 PM CDT [facility] T BILI 0.3 0.2 - 1.2 mg/dL 07/21/2025 7:10 PM CDT [facility] SGOT (AST) 26 <43 U/L 07/21/2025 7:10 PM CDT [facility] SGPT (ALT) 52 <56 U/L 07/21/2025 7:10 PM CDT [facility] ALKALINE PHOSPHATASE 75 40 - 150 U/L 07/21/2025 7:10 PM CDT [facility] GFR, ESTIMATED >60 >=60 07/21/2025 7:10 PM CDT [facility] Comment: Creatinine Clearance is the preferred criteria for selecting drug dose adjustments in renally impaired patients. The GFR is provided as additional pertinent clinical information. GFR is reported in mL/min/1.73 sq m. Calculation based on the 2020 Chronic Kidney Disease Epidemiology Collaboration (CKD-EPI) equation refit without adjustment for race. GFR, EST. >60 >=60 025 7:10 PM CDT [facility] Comment: Creatinine Clearance is the preferred criteria for selecting drug dose adjustments in renally impaired patients. The GFR is provided as additional pertinent clinical information. GFR is reported in mL/min/1.73 sq m. Calculation based on the 2009 Chronic Kidney Disease Epidemiology Collaboration (CKD-EPI). GFR, EST. NONAFRICAN >60 >=60 07/21/2025 7:10 PM CDT [facility] Comment: Creatinine Clearance is the preferred criteria for selecting drug dose adjustments in renally impaired patients. The GFR is provided as additional pertinent clinical information. GFR is reported in mL/min/1.73 sq m. Calculation based on the 2009 Chronic Kidney Disease Epidemiology Collaboration (CKD-EPI). Blood Venipuncture / Unknown 07/21/2025 6:13 PM CDT 07/21/2025 6:49 PM CDT us Viri Lo PAC CHEMISTRY ORDERABLES Final Result Performing Organization Address City/[facility]/ZIP Co de Phone Number [facility] [address] [place] [address] * CT - ABDOMEN/PELVIS (07/21/2025 12:00 AM CDT) 07/21/2025 us Provider Scan IMG CT ORDERABLES Final Result Performing Organization Address City/[facility]/ZIP Co de Phone Number SCAN * Nerve Block (06/10/2025 9:23 AM CDT) Narrative Javier Porras MD - 06/10/2025 9:23 AM CDT Javier Porras MD 06/10/2025 9:24 AM Nerve Block Staffing Performed: anesthesiologist Performed by: Javier Porras MD Authorized by: Javier Porras MD Patient Location: Pre-op, Prep: Surgical hat, sterile gown, surgical mask, surgical hat, sterile gloves, Chloraprep, sterile technique, surgical mask, sterile drape and sterile gloves Laterality: right, Block Perfomed: Interscalene Reason for block: at surgeon's request and post-op pain management Neuraxial/Peripheral Nerve Block requested for post-operative analgesia by: Celestine Peck MD Post-Operative pain expected to be inadequately managed by oral or IV medications. , Regional anesthetic expected to facilitate rehabilitation and/or timely discharge from facility., [place] Injection Technique: Single-shot Needle type: Stimuplex Needle Gauge: 22 G Needle length: 6 in , Preanesthetic Checklist Completed: site marked, surgical consent, timeout performed, risks and benefits discussed, at surgeon's request and post-op pain management, Procedures Procedures: ultrasound guided and nerve stimulator Number of attempts: 1 Ropivacaine .5% Medications administered: 20cc, Narrative Injection made incrementally with aspirations every 5 mL. no ultrasound evidence of intravascular and/or intraneural injection post-procedure vital signs reviewed and stable Injection Pressure normal. Yes Performed by: anesthesiologist , Additional Notes Vss throughout us Javier Porras MD ANESTHESIA ORDERABLES Final R esult * Pathology Surgical (06/10/2025 8:23 AM CDT) Case Report Surgical Pathology Report Case: [id number] Authorizing Provider: Celestine Peck MD Collected: 06/10/2025 08:23 AM Ordering Location: [facility] Received: 06/10/2025 10:43 AM [facility] Main OR Pathologist: Bhupendra Corrigan MD Specimen: Shoulder, ARTHROSCOPIC SHAVINGS RIGHT SHOULDER 06/11/2025 9:15 AM CDT [facility] FINAL DIAGNOSIS Right Shoulder, Arthroscopy: - Degenerative arthritis 06/11/2025 9:15 AM CDT [facility] at 0915 CDT Pre-Operative Diagnosis SYNOVITIS RIGHT SHOULDER 06/11/2025 9:15 AM CDT [facility] Gross Description A. ARTHROSCOPIC SHAVINGS RIGHT SHOULDER Received in formalin labeled with the patient identifiers and arthroscopic shavings right shoulder is a white sock suction device containing 2 g of emery-white soft tissue fragments measuring 2.5 x 1.5 x 0.5 cm in aggregate. The specimen is entirely submitted in cassette A1. Total time of formalin fixation: 13 hours and 8 minutes. 06/11/2025 9:15 AM CDT [facility] Microscopic Description Sections show multiple pieces of tissue including cartilage, paucicelluar eosinophilic material, areas with synovium and adipose-like differentiation, skeletal muscle, and calcifications overall compatible with clinical diagnosis degenerative arthritis. 06/11/2025 9:15 AM CDT [facility] Tissue BONE MARROW STRUCTURE / Unknown 06/10/2025 8:23 AM CDT 06/10/2025 10:43 AM CDT Celestine Peck MD PATHOLOGY/CYTOLOGY ORDERABLES Fi nal Result [facility] [address] [place] [address] * Intubation in OR (06/10/2025 8:07 AM CDT) Narrative Javier Porras MD - 06/10/2025 8:07 AM CDT Javier Porras MD 06/10/2025 8:07 AM Intubation in OR Staffing Performed: anesthesiologist Performed by: Javier Porras MD Authorized by: Javier Porras MD Overall Difficulty: Easy Procedure Details Patient Position: Sniffing Ease of mask ventilation: easy with airway Intubation Site: oral Tube Type: Standard Cuffed: yes Intubation Method: Direct laryngoscopy Cricoid Pressure: No Rapid Sequence: No Airway Assist Devices: oral airway Blade Used: Appiah Blade size: #2 Stylet Used: No Laryngeal View: Grade I Tube Size: 7 mmConfirmation: breath sounds and +EtCO2 Depth: 22 cm Atraumatic: Atraumatic intubation Javier Porras MD ANESTHESIA ORDERABLES Final R esult from Last 3 Months Insurance [facility] Advance Directives * Full Code (Latest Code Status on File) Date Activated Date Inactivated Comments 03/24/2025 10:58 PM CPR-Full Cherelle tment: FULL ARREST: Attempt Resuscitation/CPR wit intubation and mechanical ventilation. PRE-ARREST: Use entire range of life support measures to stabilize the patient. Care Teams Clearance Rep Relationship Specialty Start Date End Date Warner Travis MD #2 [facility] [address] [place] [address] PCP - General Family Medicine 11/03/24 Christiano Neves MD #2 [facility] [address] [place] [address] Consulting Physician Urology 08/28/24
--- OUTSIDE RECORDS SUMMARY | 2025-09-03 09:22 | XMS_ITS | CCD ---
Author Name Interface, [id number] lity Address [place] [address] Organization [facility] Address More breakthroughs[place] [address] Care Team Providers Care Senior Ssis Developer Name Role Phone Vidhi Ren MD Unavailable Unavailable Allergies and Adverse Reactions Medication/Group Name Reaction Severity Date Opioids - Morphine Analogues Rash 07/27/2020 morphine Rash 07/27/2020 red dye 08/10/2020 Reason for Visit Medications Date Name Route Dose Frequency Instructions Start Date End Date Status Fill Status Indication 12/03 Clonazepam Oral PO 1.0 TABLE T(S) BID 2019 active 12/03 Sertraline Oral PO 2.0 TABLE T(S) daily 2019 active Problems Diagnosis Status Date of Diagnosis Resolution Date Endometriosis of pelvic flako toneum (disorder) Active Body mass index [BMI] 36.0-36.9, adult Inactive Social History Date Name Value 12/03/2020 Sex Female
--- OUTSIDE RECORDS SUMMARY | 2025-09-03 09:22 | XMS_ITS | Clinical Summary ---
Author Organization [facility] Address [address] [place] [address] Care Team Providers Care Bagging Salvager Name Role Phone Unavailable Primary Care Provider Unavailabl e Social History Tobacco Use Types Packs/Day Years Used Date Smoking Tobacco: Never Assessed Comments Unknown Sex and Gender Information Value Date Recorded Sex Assigned at Not on file Legal Sex Female 6:51 PM HOME CARE ADMINISTRATOR Gender Identity Not on file Sexual Orientation Not on file Plan of Treatment Health Maintenance Due Date Last Done Comments Cervical Cancer Screening Pa p Smear (Age 30 to 64) Every 3 Years 1984 Annual Physical 1987 Hepatitis C 2002 DTaP, Tdap and Td Vaccines ( 1 - Tdap) 2003 Hepatitis B Vaccines (1 of 3 - 19+ 3-dose series) 2003 HPV Vaccines (1 - 3-dose SCD M series) 2011 Cervical Cancer Screening Pa p with HPV Testing (Age 30 to 64) Every 5 Years 2014 Cervical Cancer Screening with HPV 2014 Mammogram Screening 2024 COVID-19 Vaccine (2024-2 6 season) 2025 Influenza Adult (#1) 2025 Hepatitis A Vaccines Aged Out No long er eligible based on patient's age to complete this topic Meningococcal B Vaccine Aged Out No l onger eligible based on patient's age to complete this topic Meningococcal Vaccine Aged Out No leonarda grecia eligible based on patient's age to complete this topic Pneumococcal Vaccine: Pediat rics (0 to 5 Years) and At-Risk Patients (6 to 49 Years) Aged Out No longer eligible b ased on patient's age to complete this topic RSV Immunizations Under 20 Months Aged Out No longer eligible based on patient's age to complete this topic
--- OUTSIDE RECORDS SUMMARY | 2025-09-03 09:22 | XMS_ITS | Encounter Summary ---
Author Organization [facility] Address [address] [place] [address] Care Team Providers Care Covered Buckle Assembler Name Role Phone Warner Travis MD Primary Care Provider [phone] Encounter Details Date Type Department Care Team (Late st Contact Info) Description 09/24/2007 Outpatient Historical [facility] Internal Medicine [address] [address] Samia Farias MD NO ADDRESS ON FILE Social History Tobacco Use Types Packs/Day Years Used Date Smoking Tobacco: Never Assessed Comments Unknown Sex and Gender Information Value Date Recorded Sex Assigned at Not on file Legal Sex Female 5:24 AM ORTHOPAEDIC TECHNOLOGIST Gender Identity Not on file Sexual Orientation Not on file documented as of this encounter Last Filed Vital Signs Vital Sign Reading Time Taken Comments Blood Pressure 110/70 09/24/2007 11:30 AM ORTHOPAEDIC TECHNOLOGIST Pulse - - Temperature - - Respiratory Rate - - Oxygen Saturation - - Inhaled Oxygen Concentration - - Weight 73 kg (161 lb) 09/24/2007 11:30 AM ORTHOPAEDIC TECHNOLOGIST Height - - Body Mass Index 23.78 12/04/2006 2:30 PM ORTHOPAEDIC TECHNOLOGIST documented in this encounter Plan of Treatment Not on file documented as of this encounter Visit Diagnoses Not on filedocumented in this encounter Care Teams Covered Buckle Assembler Relationship Specialty Start Date End Date Warner Travis MD #[address] [address] PCP - General Internal Medicine 08/12/14 07/03/16 documented as of this encounter
--- OUTSIDE RECORDS SUMMARY | 2025-09-03 09:22 | XMS_ITS | Encounter Summary ---
Author Organization [facility] Address [address] [place] [address] Care Team Providers Care Lead Embedded Software Engineer Name Role Phone Warner Travis MD Primary Care Provider [phone] Encounter Details Date Type Department Care Team (Late st Contact Info) Description 11/03/2008 Outpatient Historical [facility] DEPT Wade Farias MD NO ADDRESS ON FILE Concussion with no Loss of Consciousness Social History Tobacco Use Types Packs/Day Years Used Date Smoking Tobacco: Every Day Cigarettes Alcohol Use Standard Drinks/Week Comments Yes 2.5 (1 standard drink = 0.6 oz p ure alcohol) Comments No Sex and Gender Information Value Date Recorded Sex Assigned at Not on file Legal Sex Female 5:24 AM MORTGAGE LOAN UNDERWRITER Gender Identity Not on file Sexual Orientation Not on file documented as of this encounter Plan of Treatment Not on file documented as of this encounter Procedures Procedure Name Priority Date/Time Associated Diagnosis Comments MRI BRAIN W WO CONTRAST Routine 11/03/2008 9:26 PM MORTGAGE LOAN UNDERWRITER documented in this encounter Results * MRI BRAIN W WO CONTRAST (11/03/2008 9:26 PM MORTGAGE LOAN UNDERWRITER) Anatomical Region Laterality Modality Head Other 11/03/2008 9:26 PM MORTGAGE LOAN UNDERWRITER Narrative 11/04/2008 3:18 PM MORTGAGE LOAN UNDERWRITER [address] [address] Admit Date: 11/03/2008 [place] NORIEGA Sex: F Admit Prov: WADE FARIAS Date: 1985 Primary Care Prov: WADE FARIAS CMRN: [id number] [id number] Ordering Prov: N/A Accession Number: [id number] Interpretation MRI BRAIN WITHOUT AND WITH IV CONTRAST, 11/03/2008 History: Headaches and dizziness, nausea, large object fell on head on s Lucy. Findings: Multiple brain sequences demonstrate normal signal and appearance of the brain parenchyma for age, including parenchymal volume, ventricular size, and appearance of the white matter.There is no mass, hemorrhage, acute ischemic change, shift, extra-axial collection, or abnormal enhancement. The major arterial flow voids are present. Impression: Exam within normal limits. . Dictated by: WHITNEY MIJARES 11/04/2008 09:32 Electronically signed by: WHITNEY MIJARES 11/04/2008 15:17 Transcribed: 11/04/2008 14:49 AMK Procedure Note Whitney Mijares - 11/04/2008 [facility] [address] [place], [place] [address] Admit Date: 11/03/2008 MALCOM NORIEGA Sex: F Admit Prov: WADE FARIAS Date: 1985 Primary Care Prov: WADE FARIAS CMRN: [id number] [id number] Ordering Prov: N/A Interpretation MRI BRAIN WITHOUT AND WITH IV CONTRAST, 11/03/2008 History: Headaches and dizziness, nausea, large object fell on headon s Lucy. Findings: Multiple brain sequences demonstrate normal signal and appearance of the brain parenchyma for age, including parenchymalvolume, ventricular size, and appearance of the white matter.There is nomass, hemorrhage, acute ischemic change, shift, extra-axial collection,or abnormal enhancement. The major arterial flow voids are present. Impression: Exam within normal limits. . Dictated by: WHITNEY MIJARES 11/04/2008 09:32 Electronically signed by: WHITNEY MIJARES 11/04/2008 15:17 Transcribed: 11/04/2008 14:49 AMK us Wade Farias MD MR ORDERABLES Final Re sult documented in this encounter Visit Diagnoses Diagnosis Concussion with no loss of consciousness documented in this encounter Care Teams Lead Embedded Software Engineer Relationship Specialty Start Date End Date Warner Travis MD #2 [place] [address] PCP - General Internal Medicine 08/12/14 07/03/16 documented as of this encounter
--- OUTSIDE RECORDS SUMMARY | 2025-09-03 09:22 | XMS_ITS | Encounter Summary ---
Author Organization [facility] Address [address] [place] [address] Care Team Providers Care Migratory Worker Name Role Phone Warner Travis MD Primary Care Provider [phone] Encounter Details Date Type Department Care Team (Late st Contact Info) Description 11/11/2007 Orders Only [facility] Internal Medicine [address] [address] Samia Farias MD NO ADDRESS ON FILE Social History Tobacco Use Types Packs/Day Years Used Date Smoking Tobacco: Never Assessed Comments Unknown Sex and Gender Information Value Date Recorded Sex Assigned at Not on file Legal Sex Female 5:24 AM CASINO SURVEILLANCE OFFICER Gender Identity Not on file Sexual Orientation Not on file documented as of this encounter Progress Notes * Samia Farias MD - 03/10/2008 6:26 PM CDT WEIGHT: 165lbs BLOOD PRESSURE: 130/76 Right Arm Sitting NURSE NAME: Reny Jamison J CHIEF COMPLAINT Patient here for follow up depression. HISTORY: HISTORY: 311-DEPRESSION The depression is unchanged. she has developed some nausea and dizzy spells since starting on wellbutrin. She was still having some bad days on the medication, feeling down and having a lot of stress. She stopped taking the meds 4 days ago and nausea has improved. CURRENT ALLERGY LIST: CODIENE RED DYE SOCIAL HISTORY: TOBACCO USE: Has no significant smoking history. PHYSICAL EXAMINATION: CONSTITUTIONAL: GENERAL APPEARANCE: Healthy appearing patient in no distress. NECK/THYROID: Trachea midline. No thyroid enlargement, tenderness, or mass. No supraclavicular or cervical adenopathy. RESPIRATORY: Clear to auscultation and percussion. Normal respiratory effort. CARDIOVASCULAR: CARDIAC: Regular rhythm. No murmurs, rubs, or gallops. EDEMA/VARICOSITIES OF EXTREMITIES: No edema. SKIN: SKIN: Warm, dry, no diaphoresis, no significant lesions, irritation, rashes or ulcers. No induration, obvious subcutaneous nodules or tightening. PSYCHIATRIC: ANXIOUS, DEPRESSED AFFECT. appears irritable. ASSESSMENT/PLAN: 305.1-TOBACCO ABUSE ASSESSMENT: The patient continues to smoke and was strongly advised to discontinue tobacco productscompletely. 311-DEPRESSION ASSESSMENT: The patient's depression has not changed. Current medication is causing side effects, will change medication. MEDICATIONS: WELLBUTRIN SR ORAL TABLET 12 HR 150 MG, 1 Two Times A Day, 60 Dispensed, 6 Fills, status: DISCONTINUED, 11/11/2007. LEXAPRO ORAL TABLET 10 MG, 1 Every Day, 30 Dispensed, 6 Fills, status: NEW PRESCRIPTION, 11/11/2007. HEALTH MAINTENANCE: LAST BREAST EXAM DATE: 11/04. LAST PAP DATE: 11/04. LAST DATE PELVIC EXAM: 11/04. PREVENTIVE COUNSELING The patient was counseled regarding diet, regular sustained exercise for at least 30 minutes 3-4 times per week. REQUESTING OLD RECORDS: . labs from special events assistant office. RETURN VISIT : Patient instructed to return in 6 months. Electronically Signed by: Samia Farias MD on Friday, November 16, 2007 documented in this encounter Plan of Treatment Not on file documented as of this encounter Visit Diagnoses Not on filedocumented in this encounter Care Teams Migratory Worker Relationship Specialty Start Date End Date Warner Travis MD #[address] [place] [address] PCP - General Internal Medicine 08/12/14 07/03/16 documented as of this encounter
--- OUTSIDE RECORDS SUMMARY | 2025-09-03 09:22 | XMS_ITS | Encounter Summary ---
Author Organization [facility] Address [address] [place] [address] Care Team Providers Care Ginner Name Role Phone Warner Travis MD Primary Care Provider [phone] Encounter Details Date Type Department Care Team (Late st Contact Info) Description 12/13/2007 Emergency [facility] Er, Authorized P NO ADDRESS ON FILE Anjelica Klein MD [address] [place] [address] Sprain and Strain of Unspecified Site of Wrist; Overexertion and Strenuous Movements; Unspecified Place of Occurrence Social History Tobacco Use Types Packs/Day Years Used Date Smoking Tobacco: Never Assessed Comments Unknown Sex and Gender Information Value Date Recorded Sex Assigned at Not on file Legal Sex Female 5:24 AM BRAKE LINING CURER Gender Identity Not on file Sexual Orientation Not on file documented as of this encounter Plan of Treatment Not on file documented as of this encounter Procedures Procedure Name Priority Date/Time Associated Diagnosis Comments XR WRIST 3+ VW RIGHT Stat 12/13/2007 4:36 PM BRAKE LINING CURER documented in this encounter Results * XR WRIST 3+ VW RIGHT (12/13/2007 4:36 PM BRAKE LINING CURER) Anatomical Region Laterality Modality Wrist / Hand Other 12/13/2007 4:3 6 PM BRAKE LINING CURER Narrative 12/13/2007 5:08 PM BRAKE LINING CURER [facility] [address] [place], [place] [address] Admit Date: 12/13/2007 MALCOM NORIEGA Sex: F Admit Prov: ER, AUTHORIZED P Date: 1985 Primary Care Prov: WADE PALMER CMRN: [id number] [id number] Ordering Prov: N/A Accession Number: [id number] Interpretation Right wrist 3 views, 12/13/2007 Indication: Wrist pain Findings: No abnormalities are seen in the bones, joints, or soft tissues. Impression: Normal. . Dictated by: PRADEEP GREWAL 12/13/2007 16:37 Electronically signed by: PRADEEP GREWAL 12/13/2007 17:08 Transcribed: 12/13/2007 16:57 AMK Procedure Note Pradeep Grewal - 12/13/[address] [address] Admit Date: 12/13/2007 [place] NORIEGA Sex: F Admit Prov: ER, AUTHORIZED P Date: 1985 Primary Care Prov: WADE PALMER CMRN: [id number] [id number] [facility] Ordering Prov: N/A Interpretation Right wrist 3 views, 12/13/2007 Indication: Wrist pain Findings: No abnormalities are seen in the bones, joints, or softtissues. Impression: Normal. . Dictated by: PRADEEP GREWAL 12/13/2007 16:37 Electronically signed by: PRADEEP GREWAL 12/13/2007 17:08 Transcribed: 12/13/2007 16:57 AMK Anjelica Klein MD DIAGNOSTIC IMAGING ORDERABLES Fi nal Result documented in this encounter Visit Diagnoses Diagnosis Sprain of wrist, unspecified site Overexertion and strenuous and repetitive movements or loads Unspecified place of occurrence documented in this encounter Care Teams Ginner Relationship Specialty Start Date End Date Warner Travis MD [address] [place] [address] PCP - General Internal Medicine 08/12/14 07/03/16 documented as of this encounter
--- OUTSIDE RECORDS SUMMARY | 2025-09-03 09:22 | XMS_ITS | Encounter Summary ---
Author Organization [facility] Address [address] [place] [address] Care Team Providers Care Network Support Analyst Name Role Phone Warner Travis MD Primary Care Provider [phone] [phone] Encounter Details Date Type Department Care Team (Late st Contact Info) Description 12/04/2007 Outpatient Historical [facility] Internal Medicine [address] [address] Deejay Palm MD [address] [place] [address] Social History Tobacco Use Types Packs/Day Years Used Date Smoking Tobacco: Never Assessed Comments Unknown Sex and Gender Information Value Date Recorded Sex Assigned at Not on file Legal Sex Female 5:24 AM AUTOMOBILE MECHANIC APPRENTICE Gender Identity Not on file Sexual Orientation Not on file documented as of this encounter Plan of Treatment Not on file documented as of this encounter Visit Diagnoses Not on filedocumented in this encounter Care Teams Network Support Analyst Relationship Specialty Start Date End Date Warner Travis MD #2 [place] [address] PCP - General Internal Medicine 08/12/14 07/03/16 documented as of this encounter
--- OUTSIDE RECORDS SUMMARY | 2025-09-03 09:26 | XMS_ITS | CCD ---
Author Name Interface, [id number] lity Address [place] [address] [facility] Address [place] [address] Care Team Providers Care Room Service Waiter Name Role Phone Vidhi Ren MD Unavailable Unavailable Allergies and Adverse Reactions Reason for Visit Medications Problems Social History
--- OUTSIDE RECORDS SUMMARY | 2025-09-03 09:26 | XMS_ITS | CCD ---
Author Name Interface, [id number] lity Address [place] [address] Organization [facility] Address [place] [address] Care Team Providers Care Agricultural Education Instructor Name Role Phone Vidhi Ren MD Unavailable [...]
--- NOTE | 2025-09-03 10:30 | ED.URI ---
HPI - URI/Sore Throat General Chief Complaint: Upper Respiratory Infection Stated Complaint: flu/cold symptoms/throat Time Seen by Provider: 09/03/25 10:25 Source: patient, RN notes reviewed and old records reviewed Mode of arrival: ambulatory Limitations: no limitations History of Present Illness HPI Narrative: 40 year old female who presents to [facility] care with 3 day history of runny nose, cough, sore throat, headache,fevers and also body aches. Patient reports that she has been taking Tylenol for her symptoms. Patient reports that cough is nonproductive and denies any shortness of breath.Patient has small bandaide to right upper cheek area states recently diagnosed with basal cell carcinoma of skin lesion and is scheduled for Mohs procedure. MD elicited complaint: fever, cough, sore throat, rhinorrhea, nasal congestion and other (body aches) Onset (ago): day(s) (3) Consistency: constant Severity: moderate Able to tolerate fluids by mouth: Yes Treatments prior to arrival: acetaminophen Related Data Home Medications ?Medication ?Instructions ?Recorded ?Confirmed ?Last Taken ?Type aripiprazole 10 mg tablet 10 mg PO DAILY 07/14/24 07/14/24 Unknown History sertraline 100 mg tablet 150 mg PO DAILY 07/14/24 07/14/24 Unknown History trazodone 50 mg tablet 50 mg PO HS 07/14/24 07/14/24 Unknown History alprazolam 2 mg tablet mg 09/03/25 Unknown History lamotrigine 100 mg tablet mg 09/03/25 Unknown History Allergies Allergy/AdvReac Type Severity Reaction Status Date / Time codeine Allergy Mild Unknown Verified 11/09/24 07:35 RED #40 Allergy Mild Hyperactive Uncoded 11/09/24 07:35 Review of Systems Review of Systems: CONSTITUTIONAL: Reports malaise, chills, sweats, or fever. EYES: Denies visual changes, redness, or discharge. ENT: Reports rhinorrhea, congestion, sinus pain,no otalgia and positive for sore throat. CARDIOVASCULAR: Denies chest pain, palpitations, or edema. RESPIRATORY: Reports cough.? Denies dyspnea. GASTROINTESTINAL: Denies abdominal pain, nausea, vomiting, diarrhea SKIN: Denies rash or itching. MUSCULOSKELETAL: Reports myalgia. NEUROLOGIC: Reports headache. All systems reviewed & are unremarkable except as noted in HPI and below PMFSH Past Medical History Medical History (Updated 11/08/25 @ 09:21 by Andie Mcginnis APRN) BCC (basal cell carcinoma), face Kidney stone Chronic back pain Anxiety Depression Endometriosis Pilonidal cyst Surgical History Surgical History Hx of cholecystectomy History of appendectomy History of hysterectomy History of bowel resection Family History Family History Other No significant family history Social History Social History Smoking packs per day: 0.5 Smoking cigarettes per day: 10.0 Years smoked: 20 Smoking pack-years: 10.00 Tobacco type: cigarettes Alcohol intake: current Alcohol use details: socially Substance use: never Living arrangements: with family Gender identity (if verbalized by the patient): Female Comments At time of signature, agree with nursing past medical, surgical, social and family history. There is no relevant family history pertinent to the presenting complaint Exam Narrative: GENERAL: Ill-appearing, well-nourished, and in no acute distress. HEAD: Normocephalic EYES: PERRLA, conjunctivae clear ENT: Nares clear, turbinates edematous and erythematous, clear discharge, sinus pressure, headache. Mucous membranes moist. TM pearly feldman with dull light reflex bilaterally; no tragal tenderness. Oropharynx erythematous without lesions. Tonsils red not enlarged and without exudate, no drooling, no hoarseness, no trismus, uvula midline.post nasal drainage NECK: Supple. No lymphadenopathy CHEST: Clear to auscultation, breath sounds equal. No wheezing, rhonchi, rales, or stridor. No respiratory distress, speaks in full sentences.dry cough SAO2 97% on room air HEART: Regular rate and rhythm. No murmur heard. SKIN: Warm, dry, no rash. NEURO: Alert and oriented x3. PSYCH: Normal mood and affect, history of anxiety and depression Course Course Emergency Course: Patient is aware of diagnosis, understands and agrees to treatment plan.? Anticipatory guidance given.? Patient agrees to follow-up as directed and is aware of reasons to seek care at the emergency department. Portions of this record may have been created with voice recognition software Level of Care: Express Care Visit Vital Signs Vital signs: Vital Signs Temperature 36.6 C 09/03/25 08:57 Pulse Rate 101 H 09/03/25 08:57 Respiratory Rate 18 09/03/25 08:57 Blood Pressure 148/86 H 09/03/25 08:57 Pulse Oximetry 97 09/03/25 08:57 Oxygen Delivery Room Air 09/03/25 08:57 Temperature 36.6 C 09/03/25 08:57 Pulse Rate 101 H 09/03/25 08:57 Respiratory Rate 18 09/03/25 08:57 Blood Pressure 148/86 H 09/03/25 08:57 Pulse Oximetry 97 09/03/25 08:57 Oxygen Delivery Room Air 09/03/25 08:57 Reviewed MDM - URI/Sore Throat MDM Narrative Medical decision making narrative: Differential diagnosis considered: Sams virus, strep pharyngitis, allergic rhinitis, upper respiratory tract infection, sinusitis, rhinosinusitis, nasopharyngitis. viral pharyngitis, otitis media, otitis externa, pneumonia, bronchitis, viral cough syndrome, viral syndrome, and influenza.? Exam findings show no acute concerns or changes; patient is non-toxic appearing and is in no distress.? Patient is appropriate for outpatient treatment and follow-up. Differential Diagnosis Differential diagnosis: Likely upper respiratory infection, viral infection, influenza, pharyngitis and other (strep pharyngitis, COVID) Lab Data Attestation: I reviewed the patient's lab results. Lab results narrative: strep screen negative, culture sent, Influenza A&B negative, COVID antigen positive Labs: Lab Results 09/03/25 09/03/25 Range/Units 10:32 10:39 POC Influenza A Ag Negative (Negative) POC Influenza B Ag Negative (Negative) POC SARS CoV-2 Ag Positive (Negative) POC Grp A Strep Screen Negative (Negative) reviewed Critical Care Time Critical Care Time Critical Care Time: No Discharge Plan Discharge Clinical Impression: COVID-19 Patient Disposition: Home Condition: Stable Instructions: Antibiotic Form, How to Recover from COVID-19 at Home (ED) Additional Instructions: Increase fluids especially juices and water [id number] cough and cold medicine of your choice for your symptoms Tylenol or ibuprofen for any fever pain for package directions Zyrtec Claritin or Estela daily Robitussin or Delsym cough syrup heat to the face 20-30 minutes 4-6 times a day for pain Salt water gargles, throat lozenges or throat sprays as desired If your symptoms persist, change or worsen significantly before you can contact your personal physician then please, without delay, go to the emergency department for further evaluation. Follow-up with PCP in 7-10 days or sooner if needed Follow up with PCP soon in regards to your blood pressure which is elevated above threshold for referral. Blood pressure above 120/80 may indicate pre-hypertension. If your symptoms persist, change or worsen significantly before you can contact your personal physician then please, without delay, go to the emergency department for further evaluation. Follow-up with PCP in 7-10 days or sooner if needed Follow up with PCP soon in regards to your blood pressure which is elevated above threshold for referral. Blood pressure above 120/80 may indicate pre-hypertension.148/86 COVID-19 DISCHARGE The following recommendations have been made by the CDC and local Health Departments, regarding COVID-19: Those individuals with mild cases of COVID-19 can generally be discontinued from isolation, 5 days AFTER the onset of symptoms AND the resolution of fever for 24hrs (without the use of fever-reducing medications) Those individuals who were asymptomatic, and tested positive, are discontinued from isolation 10 days AFTER their first positive COVID-19 test Those individuals with SEVERE to CRITICAL illness or immunocompromised diseases may require up to 20 days of home isolation or hospitalization Majority of mild to moderate cases can be treated at home, without hospitalization or prescription medications You do not need a negative test result to return to work/school, assuming the above recommendations have been met and you are not symptomatic. At this time, return to work/school notes will not be provided. Guidelines from the local Health Department, CDC, and workplace are expected to be followed. All individuals in the household need to remained quarantined for up to 14 days if asymptomatic OR 10 days after the start of symptoms. Everyone in the home DOES NOT require testing, they are presumed positive and should quarantine as directed. Treating symptoms for mild to moderate cases may include: Tylenol, Flonase/nasal spray, OTC cold/flu medications recommended from your provider or any necessary prescription medications provided at your visit or from your PCP IF YOU TESTED NEGATIVE If you are symptomatic with reason to believe you have COVID-19, there is a high possibility your rapid test may not have detected the virus. Rapid testing is dependent on timing and viral load and may have a false-negative reading You should follow appropriate guidelines regarding quarantine, hand washing, mask wearing, and social distancing You may be sent for PCR testing as an outpatient to the [facility] site Common Adult Symptoms: Fever/chills Cough Shortness of breath Fatigue, muscle aches Headache Loss of taste/smell Sore throat, congestion, runny nose GI symptoms (nausea, vomiting, diarrhea) Common Pediatric Symptoms Cough Fever GI symptoms (diarrhea, upset stomach, nausea, vomiting) Symptoms may differ in severity however, most cases do not require hospitalization. WHEN TO SEEK ER EVALUATION/TREATMENT Severe/persistent shortness of breath or difficulty breathing Elevated, persistent fevers without resolution with fever-reducing medications Chest pain Extreme fatigue/lethargy Complications of pre-existing disease Patient Language: Spanish Prescriptions: No Action alprazolam 2 mg tablet lamotrigine 100 mg tablet trazodone 50 mg tablet 50 mg PO HS sertraline 100 mg tablet 150 mg PO DAILY aripiprazole 10 mg tablet 10 mg PO DAILY Follow-up/Referrals: Thaddeus,Warner Myers MD [Primary Care Provider] Time of Disposition: 11:02 Quality Isis Coma Scale Eyes: Open Verbal: Oriented and Alert Motor: Follows Commands [place] Coma Total Score: 15
[2025-09-03 10:34] LABS: EDSTREPNEGPOS1 Negative (Negative)
[2025-09-03 10:41] LABS: EDCOVIDSCREEN Positive (Negative); EDINFLUASCREEN Negative (Negative); EDINFLUBSCREEN Negative (Negative)
== END 2025-09-03 11:19 | disposition home or self-care (01) ==
PROVIDERS: Emergency Provider Registered Nurse; PCP Internal Medicine
DX: U07.1 COVID-19 (principal); F17.210 Nicotine dependence, cigarettes, uncomplicated; N80.9 Endometriosis, unspecified; F41.9 Anxiety disorder, unspecified; F32.A Depression, unspecified; Z85.828 Personal history of other malignant neoplasm of skin
CPT/HCPCS: 87081; 87426; 87804; 87880; 99213; G0463